=== PATIENT | female | born 1950 | race Caucasian/White ===

== ENCOUNTER 2017-04-11 16:41 | Emergency (ER) | payer MEDICARE ==
[2017-04-11] MEDS ORDERED: Acetaminophen/HYDROcodone 325-5 MG Tab PO ONE (18:50)
[2017-04-11] MEDS ORDERED: Ondansetron 4 MG Tab.DIS PO ONE (18:50)
--- NOTE | 2017-04-11 19:15 | EDM.PDOC ---
ED HPI GENERAL MEDICAL PROBLEM - General Stated Complaint: FALL/RT TAILBONE/PELVIC PAIN Time Seen by Provider: 04/11/17 18:42 Source of Information: Reports: Patient History Limitations: Reports: No Limitations - History of Present Illness INITIAL COMMENTS - FREE TEXT/NARRATIVE: HISTORY AND PHYSICAL: History of present illness: Patient is a 66-year-old female who presents to the emergency room today with complaints of tailbone pain, C-spine pain, nausea. She states that she was standing up out of her wheelchair and became lightheaded as she has orthostatic hypotension and fell landing on her "tailbone". Since that time she has had increased pain. Patient denies hitting her head or any loss of consciousness. Denies any chest pain, shortness of breath, abdominal pain, vomiting or diarrhea. When asked if she has any numbness or tingling to her lower extremities she states that this is difficult to assess if she does have neuropathy. Does not state any different sensation to her lower extremities bilaterally. Patient reports that she normally takes [place] at home for pain and discomfort but has not taken any in the light of this injury. Patient has a past medical history of orthostatic hypotension, kyphoplasty, cervical fusion, or concerns, neuropathy Review of systems: As per history of present illness and below otherwise all systems reviewed and negative. Past medical history: As per history of present illness and as reviewed below otherwise noncontributory. Surgical history: As per history of present illness and as reviewed below otherwise noncontributory. Social history: No reported history of drug or alcohol abuse. Family history: As per history of present illness and as reviewed below otherwise noncontributory. Physical exam: HEENT: Atraumatic, normocephalic, pupils reactive, negative for conjunctival pallor or scleral icterus, mucous membranes moist, throat clear, neck supple, nontender, trachea midline. Lungs: Clear to auscultation, breath sounds equal bilaterally, chest nontender. Heart: S1S2, regular, negative for clicks, rubs, or JVD. Abdomen: Soft, nondistended, nontender. Negative for masses or hepatosplenomegaly. Negative for costovertebral tenderness. Pelvis: Stable nontender. Genitourinary: Deferred. Rectal: Deferred. Extremities: Atraumatic, negative for cords or calf pain. Neurovascular unremarkable. Neuro: Awake, alert, oriented. Cranial nerves II through XII unremarkable. Cerebellum unremarkable. Motor and sensory unremarkable throughout. Exam nonfocal. Head CT shows no mass, hemorrhage or acute fractures. Cervical spine CT shows a fusion of C6-C7 with no acute findings. Pelvis x-ray shows degenerative changes with no acute findings. He sacrum and coccyx x-ray demonstrates severe lower lumbar spine degenerative disc disease. Explained these results to patient. We discussed the recommendation of using physical therapy in the future. Patient states that she did do physical therapy a few months ago and did find good relief but stopped due to moving. I will provide her with primary care phone number so she can make a follow-up appointment and further discuss these options with them. We'll give the patient a prescription for [place] 5/325 and she can take this every 4-6 hours as needed (#20 - NR). She has taken this medication in the past with moderate relief. Stopped taking this approximately a month ago when she moved to [place]. She voices understanding for plan of care and denies any further questions at this time. Diagnostics: CT head and C-spine, x-ray of the sacrum/coccyx and pelvis Therapeutics: Karlene Stinson Impression: Contusion Plan: 1. Please take the medications as prescribed. 2. I would like you to follow-up with her primary caregiver, they would be able to help you arrange physical therapy if your pain does not improve. 3. Return to the ED as needed and as discussed. Definitive disposition and diagnosis as appropriate pending reevaluation and review of above. Onset Date: 04/09/17 Duration: Day(s): Location: Reports: Neck, Back, Other (Tailbone) - Related Data Allergies Allergy/AdvReac Type Severity Reaction Status Date / Time acetaminophen [From Ultracet] Allergy Other Verified 04/11/17 18:49 sulfamethoxazole Allergy Other Verified 04/11/17 18:49 [From Bactrim] tramadol [From Ultracet] Allergy Other Verified 04/11/17 18:49 trimethoprim [From Bactrim] Allergy Other Verified 04/11/17 18:49 ED ROS GENERAL - Review of Systems Review Of Systems: See Below ED EXAM, GENERAL - Physical Exam Exam: See Below Course - Orders/Labs/Meds Orders: Active Orders 24 hr Category Date Time Status Cervical Spine wo Cont [CT] Stat Exams 04/11/17 18:50 Taken Head wo Cont [CT] Stat Exams 04/11/17 18:50 Taken Pelvis 1V or 2V [CR] Stat Exams 04/11/17 18:50 Taken Sacrum Coccyx Min 2V [CR] Stat Exams 04/11/17 18:50 Taken Meds: Medications Discontinued Medications Generic Name Dose Route Start Last Admin Trade Name Precious PRN Reason Stop Dose Admin Hydrocodone Bitart/Acetaminophen 1 tab 04/11/17 18:50 04/11/17 19:34 [place] 325-5 Mg PO 04/11/17 18:51 1 tab ONETIME ONE Administration Ondansetron HCl 4 mg 04/11/17 18:50 04/11/17 19:35 Zofran Odt PO 04/11/17 18:51 4 mg ONETIME ONE Administration Departure - Departure Time of Disposition: 20:16 Disposition: Home, Self-Care 01 Condition: Good Clinical Impression: Contusion Qualifiers: Encounter type: initial encounter Contusion area: lower back Qualified Code(s) : S30.0XXA - Contusion of lower back and pelvis, initial encounter - Discharge Information Referrals: Colin Medina MD [Primary Care Provider] - Additional Instructions: My general discharge The following information is given to patients seen in the emergency department who are being discharged to home. This information is to outline your options for follow-up care. We provide all patients seen in our emergency department with a follow-up referral. The need for follow-up, as well as the timing and circumstances, are variable depending upon the specifics of your emergency department visit. If you don't have a primary care physician on staff, we will provide you with a referral. We always advise you to contact your personal physician following an emergency department visit to inform them of the circumstance of the visit and for follow-up with them and/or the need for any referrals to a consulting specialist. The emergency department will also refer you to a specialist when appropriate. This referral assures that you have the opportunity for follow-up care with a specialist. All of these measure are taken in an effort to provide you with optimal care, which includes your follow-up. Under all circumstances we always encourage you to contact your private physician who remains a resource for coordinating your care. When calling for follow-up care, please make the office aware that this follow-up is from your recent emergency room visit. If for any reason you are refused follow-up, please contact the [facility] Emergency Department at and asked to speak to the emergency department charge nurse. [facility] Primary Care [address] [place] [id number] 1. Please take the medications as prescribed. 2. I would like you to follow-up with her primary caregiver, they would be able to help you arrange physical therapy if your pain does not improve. 3. Return to the ED as needed and as discussed. - My Orders Last 24 Hours: My Active Orders 04/11/17 18:50 Cervical Spine wo Cont [CT] Stat Head wo Cont [CT] Stat Pelvis 1V or 2V [CR] Stat Sacrum Coccyx Min 2V [CR] Stat - Assessment/Plan Last 24 Hours: My Active Orders 04/11/17 18:50 Cervical Spine wo Cont [CT] Stat Head wo Cont [CT] Stat Pelvis 1V or 2V [CR] Stat Sacrum Coccyx Min 2V [CR] Stat
--- NOTE | 2017-04-12 10:31 | CT ---
EXAM DATE: 04/11/17 PATIENT'S AGE: 66 Patient: BETHANIE VILLALOBOS Facility: [place], [place] : 1950 Study: CT Head [id number]/16/2017 7:17:47 PM Ordering Physician: LUIS Final Report: INDICATION: Status post fall. TECHNIQUE: CT head without i.v. contrast. COMPARISON: None FINDINGS: CSF spaces: Within normal limits for age. Brain parenchyma: The brain parenchyma is normal in appearance with preservation of the kohli-white differentiation. No sign of mass, hemorrhage, or midline shift seen. Skull base and calvarium: The visualized paranasal sinuses are well aerated. The mastoid air cells are clear. The visualized orbits are grossly unremarkable. No skull fractures are seen. Extensive calcified plaque involving the distal vertebral arteries. IMPRESSION: 1. No evidence of acute infarction, intracranial hemorrhage, or mass effect seen. Dictated by Franky Worley MD @ 04/11/2017 7:27:49 PM Dictated by: Franky Worley MD @ 04/11/2017 19:27:58 (Electronic Signature) Report Signed by Proxy. [facility]
--- NOTE | 2017-04-12 10:32 | CT ---
EXAM DATE: 04/11/17 PATIENT'S AGE: 66 Patient: BETHANIE VILLALOBOS Facility: [place], [place] : 1950 Study: CT Spine Cervical [id number]/16/2017 7:18:00 PM Ordering Physician: LUIS Final Report: INDICATION: Neck injury TECHNIQUE: CT cervical spine without i.v. contrast. Coronal and sagittal reformats were obtained. COMPARISON: None FINDINGS: Vertebral alignment: Alignment is normal. Vertebrae: No acute fractures or aggressive osseous lesions are identified. Anterior fusion of C6-C7. Discs and facet joints: Disc spaces are within normal limits. The facet joints are unremarkable in appearance. Extraspinal findings: The prevertebral soft tissues are unremarkable in appearance. The visualized lung apices and mediastinum are unremarkable. Coarse calcifications of the carotid bulbs bilaterally. IMPRESSION: 1. Anterior fusion of C6-C7. No acute cervical spine fracture or abnormal subluxation injury. Dictated by Franky Worley MD @ 04/11/2017 7:33:34 PM Dictated by: Franky Worley MD @ 04/11/2017 19:33:47 (Electronic Signature) Report Signed by Proxy. [facility]
--- NOTE | 2017-04-12 10:33 | CR ---
EXAM DATE: 04/11/17 PATIENT'S AGE: 66 Patient: BETHANIE VILLALOBOS Facility: [place], [place] Site . Site : 1950 Study: XRay Spine sac/krishna [id number]/16/2017 7:32:50 PM Ordering Physician: Doctor Cruz Final Report: INDICATION: Status post fall. TECHNIQUE: Sacrum radiograph 3 view COMPARISON: None FINDINGS: Lower lumbar spine degenerative disk disease, severe at the presumed L5-S1 level. No acute sacral fracture. Identified. No cortical irregularity on the lateral view. IMPRESSION: 1. No acute sacral fracture. 2. Severe lower lumbar spine degenerative disc disease. Dictated by Franky Worley MD @ 04/11/2017 7:49:56 PM Dictated by: Franky Worley MD @ 04/11/2017 19:50:01 (Electronic Signature) Report Signed by Proxy. [facility]
--- NOTE | 2017-04-12 10:33 | CR ---
EXAM DATE: 04/11/17 PATIENT'S AGE: 66 Patient: BETHANIE VILLALOBOS Facility: [place], [place] Site . Site : 1950 Study: XRay Pelvis [id number]/16/2017 7:32:30 PM Ordering Physician: Doctor Cruz Final Report: INDICATION: Status post fall. TECHNIQUE: Pelvis radiograph 1 view COMPARISON: None FINDINGS: Bones: Alignment is normal. No acute fractures or aggressive osseous lesions seen. Joint spaces: Moderate degree of bilateral hip joint space narrowing. Soft tissues: The visualized bowel gas pattern of the pelvis is unremarkable in appearance. The soft tissues of the pelvic girdle are unremarkable. No radiopaque foreign bodies are noted. Bilateral vascular calcifications in the groin regions. IMPRESSION: 1. Lower lumbar spine and bilateral hip degenerative changes. No acute fracture. Dictated by Franky Worley MD @ 04/11/2017 7:41:35 PM Dictated by: Franky Worley MD @ 04/11/2017 19:41:40 (Electronic Signature) Report Signed by Proxy. EMILY
== END 2017-04-11 20:27 | disposition home or self-care (01) ==
LOC: MW.ED 16:41
DX: S30.0XXA Contusion of lower back and pelvis, initial encounter (principal); Z88.1 Allergy status to other antibiotic agents; Z88.5 Allergy status to narcotic agent; Z88.2 Allergy status to sulfonamides; Z88.6 Allergy status to analgesic agent; W05.0XXA Fall from non-moving wheelchair, initial encounter
CPT/HCPCS: 70450; 72125; 72170; 72220; 99284; A9270; 99283

== ENCOUNTER 2017-06-04 18:08 | Emergency (ER) | payer MEDICARE ==
--- NOTE | 2017-06-04 18:52 | EDM.PDOC ---
ED HPI GENERAL MEDICAL PROBLEM - General Chief Complaint: Lower Extremity Injury/Pain Stated Complaint: LEFT FOOT PAIN Time Seen by Provider: 06/04/17 18:09 Source of Information: Reports: Patient, EMS History Limitations: Reports: No Limitations - History of Present Illness INITIAL COMMENTS - FREE TEXT/NARRATIVE: HISTORY AND PHYSICAL: History of present illness: [Patient comes to the emergency room by [facility] with complaints of left foot and ankle pain. Patient reports that she drove over her left foot with her motorized wheelchair, which she uses due to her history of Parkinson's. She complained of instant pain and called EMS for transport to the ER for evaluation. He denies numbness and tingling that is new or different. She admits to decreased sensation and decreased range of motion due to her Parkinson 's. Patient complains of most of her pain to the distal aspect of her left anterior lower leg.] Review of systems: As per history of present illness and below otherwise all systems reviewed and negative. Past medical history: As per history of present illness and as reviewed below otherwise noncontributory. Surgical history: As per history of present illness and as reviewed below otherwise noncontributory. Social history: No reported history of drug or alcohol abuse. Family history: As per history of present illness and as reviewed below otherwise noncontributory. Physical exam: Gen.: Well-developed well-nourished female in no acute distress. HEENT: Atraumatic, normocephalic. Extremities: No acute findings upon examination of her left foot and ankle. She is mildly tender with palpation throughout her entire foot and ankle. Diminished range of motion which is not unusual for her. No cords or calf pain. Neurovascular unremarkable. Neuro: Awake, alert, oriented. Motor and sensory unremarkable throughout. Exam nonfocal. Diagnostics: [Left foot and ankle x-rays] Impression: [Left lower leg pain] Plan: [Discussed with patient that her x-ray of her ankle is completely normal. Nondisplaced fracture involving the lateral base of the distal first phalanx versus trabecular variation. Encouraged her to follow-up with her PCP if she continues to experience any pain. Return to ER as needed. Patients in agreement with today's plan. All questions are answered and concerns are addressed.] Definitive disposition and diagnosis as appropriate pending reevaluation and review of above. left foot Pain Score (Numeric/FACES): 6 - Related Data Allergies Allergy/AdvReac Type Severity Reaction Status Date / Time acetaminophen [From Ultracet] Allergy Other Verified 06/04/17 18:11 sulfamethoxazole Allergy Other Verified 06/04/17 18:11 [From Bactrim] tramadol [From Ultracet] Allergy Other Verified 06/04/17 18:11 trimethoprim [From Bactrim] Allergy Other Verified 06/04/17 18:11 Home Meds: Home Meds Amitriptyline HCl 150 mg PO BEDTIME 06/04/17 [History] Carbidopa/Levodopa [Rytary ER 61.25 mg-245 mg Cap] 1 tab PO DAILY 06/04/17 [ History] Cholecalciferol (Vitamin D3) [Vitamin D3] 2,000 unit PO DAILY 06/04/17 [History] Magnesium Oxide [Magnesium] 400 mg PO DAILY 06/04/17 [History] Sucralfate 1 gm PO DAILY 06/04/17 [History] Past Medical History 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: High Cholesterol, Hypertension COMMUNICATION SPEC History: Reports: Musculoskeletal History: Reports: Gout Neurological History: Reports: Parkinson's - Infectious Disease History Infectious Disease History: Reports: Mumps - Past Surgical History HEENT Surgical History: Reports: Eye Surgery, Other (See Below) GI Surgical History: Reports: Cholecystectomy Musculoskeletal Surgical History: Reports: Other (See Below) Other Musculoskeletal Surgeries/Procedures:: cervical neck fusion, Kyphoplasty Social & Family History - Family History Cardiac: Reports: [place] Oncologic: Reports: Lymphoma, Ovarian - Tobacco Use Smoking Status *Q: Never Smoker Second Hand Smoke Exposure: No - Caffeine Use Caffeine Use: Reports: None - Recreational Drug Use Recreational Drug Use: No Review of Systems - Review of Systems Review Of Systems: ROS reveals no pertinent complaints other than HPI. ED EXAM, GENERAL - Physical Exam Exam: See Below Course - Vital Signs Last Recorded V/S: Last Vital Signs Temp 98.0 F 06/04/17 18:10 Pulse 102 H 06/04/17 18:10 Resp 18 06/04/17 18:10 BP 164/108 H 06/04/17 18:10 Pulse Ox 95 06/04/17 18:10 - Orders/Labs/Meds Orders: Active Orders 24 hr Category Date Time Status Ankle Min 3V Lt [CR] Stat Exams 06/04/17 18:09 Taken Foot 2V Lt [CR] Stat Exams 06/04/17 18:09 Taken Departure - Departure Time of Disposition: 20:10 Disposition: Home, Self-Care 01 Condition: Good Clinical Impression: Left foot pain - Discharge Information Referrals: PCP,Unknown [Primary Care Provider] - Forms: ED Department Discharge Additional Instructions: The following information is given to patients seen in the emergency department who are being discharged to home. This information is to outline your options for follow-up care. We provide all patients seen in our emergency department with a follow-up referral. The need for follow-up, as well as the timing and circumstances, are variable depending upon the specifics of your emergency department visit. If you don't have a primary care physician on staff, we will provide you with a referral. We always advise you to contact your personal physician following an emergency department visit to inform them of the circumstance of the visit and for follow-up with them and/or the need for any referrals to a consulting specialist. The emergency department will also refer you to a specialist when appropriate. This referral assures that you have the opportunity for follow-up care with a specialist. All of these measure are taken in an effort to provide you with optimal care, which includes your follow-up. Under all circumstances we always encourage you to contact your private physician who remains a resource for coordinating your care. When calling for follow-up care, please make the office aware that this follow-up is from your recent emergency room visit. If for any reason you are refused follow-up, please contact the [facility] emergency department at and asked to speak to the emergency department charge nurse. [facility] [address] [place] [id number] Follow-up with your local primary care provider or the clinic listed above in the next 4-5 days. Return to the emergency room as needed as discussed. - My Orders Last 24 Hours: My Active Orders 06/04/17 18:09 Ankle Min 3V Lt [CR] Stat Foot 2V Lt [CR] Stat - Assessment/Plan Last 24 Hours: My Active Orders 06/04/17 18:09 Ankle Min 3V Lt [CR] Stat Foot 2V Lt [CR] Stat
--- NOTE | 2017-06-06 16:07 | CR ---
MEXAM DATE: 06/04/17 PATIENT'S AGE: 66 Patient: BETHANIE VILLALOBOS Facility: [place], [place] Site . Site : 1950 Study: XRay Extremity Left foot [id number]/9/2017 6:53:34 PM Ordering Physician: Doctor Cruz Final Report: Indication: Pain. Technique: Left foot two views. Comparison: Left ankle same day. Findings: Obliquely oriented lucency involving the lateral base of the distal 1st phalanx , of uncertain significance. Otherwise, no evidence of acute fracture or dislocation. Degenerative changes of the midfoot and calcaneal enthesopathy. Vascular calcifications. Soft tissues as imaged are otherwise unremarkable. Impression: Nondisplaced fracture versus trabecular variation involving the lateral base of the distal 1st phalanx. Correlation for point tenderness recommended. .Otherwise, no acute osseous abnormality. Dictated by Sarkis Javier MD @ 06/04/2017 7:22:15 PM Dictated by: Sarkis Javier MD @ 06/04/2017 19:22:20 (Electronic Signature) Report Signed by Proxy. [facility]
--- NOTE | 2017-06-06 16:10 | CR ---
EXAM DATE: 06/04/17 PATIENT'S AGE: 66 Patient: BETHANIE VILLALOBOS Facility: [place], [place] Site . Site : 1950 Study: XRay Extremity Left ankle [id number]/[id number]/2017 6:53:57 PM Ordering Physician: Doctor Cruz Final Report: Indication: Pain. Technique: Left ankle three views. Comparison: Left foot same day. Findings: No evidence of acute fracture or dislocation. Minimal degenerative changes of the tibiotalar joint. Degenerative changes of the midfoot and calcaneal enthesopathy. Vascular calcifications. Soft tissues elsewhere as imaged are unremarkable. Impression: No acute osseous abnormality. Dictated by Sarkis Javier MD @ 06/04/2017 7:20:31 PM Dictated by: Sarkis Javier MD @ 06/04/2017 19:20:38 (Electronic Signature) Report Signed by Proxy. [facility]
== END 2017-06-04 20:20 | disposition home or self-care (01) ==
LOC: MW.ED 18:08
DX: M79.672 Pain in left foot (principal); M79.662 Pain in left lower leg; I10 Essential (primary) hypertension; Z88.6 Allergy status to analgesic agent; Z88.2 Allergy status to sulfonamides; Z88.5 Allergy status to narcotic agent; Z88.1 Allergy status to other antibiotic agents; Z79.899 Other long term (current) drug therapy
CPT/HCPCS: 73610-26-LT; 73610-LT; 73620-26-LT; 73620-LT; 99283

== ENCOUNTER 2017-07-09 01:26 | Emergency (ER) | payer MEDICARE ==
[2017-07-09] MEDS ORDERED: Ketorolac 60 MG/2 ML SDV IM ONE (02:13)
--- NOTE | 2017-07-09 02:18 | EDM.PDOC ---
ED HPI GENERAL MEDICAL PROBLEM - General Chief Complaint: Back Pain or Injury Stated Complaint: BACK PAIN Time Seen by Provider: 07/09/17 02:02 - History of Present Illness INITIAL COMMENTS - FREE TEXT/NARRATIVE: HISTORY AND PHYSICAL: History of present illness: The patient is a 66-year-old female who is here with her son who lives with her and presents with complaints of bilateral hip joint pain and saying that her hips or burning and when she moves them she feels "like they're coming out of the socket". Patient has not had any recent trauma and says that she has had left hip pain for several weeks but has not talked her provider about it but the right hip pain is new. According to the family and the patient she uses a wheelchair almost all the time and her walker is broken so she has not been up moving very much but more sedentary than usual. The patient is currently in the process of getting a workup for abdominal pain and nausea with Dr. Medina and has an upper GI scheduled this week. Patient says she is not here for the abdominal issues or the nausea is concerned about her hip pain. She also says that her back hurts off to the side bilaterally but is not flank pain and she has no fever chills cough runny nose or shortness of breath. Patient has no neurosensory changes in her legs and is at her baseline overall with her movement per her son. Patient is only taken aspirin for pain Review of systems: As per history of present illness and below otherwise all systems reviewed and negative. Past medical history: As per history of present illness and as reviewed below otherwise noncontributory. Surgical history: As per history of present illness and as reviewed below otherwise noncontributory. Social history: No reported history of drug or alcohol abuse. Family history: As per history of present illness and as reviewed below otherwise noncontributory. Physical exam: Gen.: Well-developed well-nourished female looks older than her stated age. Vital signs were noted by me HEENT: Atraumatic, normocephalic, pupils reactive, negative for conjunctival pallor or scleral icterus, mucous membranes moist, throat clear, neck supple, nontender, trachea midline. Lungs: Clear to auscultation, breath sounds equal bilaterally, chest nontender. Heart: S1S2, regular, negative for clicks, rubs, or JVD. Abdomen: Soft, nondistended, nontender. Negative for masses or hepatosplenomegaly. Negative for costovertebral tenderness. Pelvis: Stable nontender. There is some tenderness with palpation of the hips laterally but there is no defects deformities or swelling. Genitourinary: Deferred. Rectal: There is normal tone no acute masses normal push and squeeze Extremities: Atraumatic, negative for cords or calf pain. Neurovascular unremarkable. On range of motion of bilateral hips patient is able to flex at the hip without discomfort but with external and internal rotation bilaterally there is discomfort and resistance. Neuro: Awake, alert, oriented. Motor and sensory unremarkable throughout. Exam nonfocal. Back: There are no midline step-offs tenderness defects of the lumbar spine nor the thoracic spine and the patient indicates the area of her discomfort at the SI joint bilaterally. There is some tenderness with palpation but no defects or deformities in this region. Patient is able to roll on her side with minimal assistance. 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 I also talked with her about her kyphoplasty of T12 again with the patient is aware of as well as her compression fractures of T11 and T10 which look chronic . There also aware of the disc space narrowing and degenerative changes of the lower lumbar spine which when I looked in the computer the patient did have some x-rays back in the fall of 2017 which indicated lumbar spine degenerative changes. Patient again states this is not an area for pain and it is more at the SI joint. The patient has mentioned that she would like to stay in the hospital because of the discomfort but I've talked with her and the son that this is not indicated at this time and that she can be started on anti-inflammatories and follow-up with Dr. Medina as she has other testing scheduled this week. I did advise them that she needs to start moving around more and not just sitting in her wheelchair or sitting in the chair at home. Advised that they do need to contact Dr. Medina on Tuesday or Tuesday to have a dialogue with him about this pain that she is having tonight. Impression: Bilateral hips/SI joint pain Definitive disposition and diagnosis as appropriate pending reevaluation and review of above low back Pain Score (Numeric/FACES): 9 - Related Data Allergies Allergy/AdvReac Type Severity Reaction Status Date / Time acetaminophen [From Ultracet] Allergy Other Verified 07/09/17 01:45 sulfamethoxazole Allergy Other Verified 07/09/17 01:45 [From Bactrim] tramadol [From Ultracet] Allergy Other Verified 07/09/17 01:45 trimethoprim [From Bactrim] Allergy Other Verified 07/09/17 01:45 Home Meds: Home Meds Amitriptyline HCl 150 mg PO BEDTIME 06/04/17 [History] Carbidopa/Levodopa [Rytary ER 61.25 mg-245 mg Cap] 1 tab PO DAILY 06/04/17 [ History] Cholecalciferol (Vitamin D3) [Vitamin D3] 2,000 unit PO DAILY 06/04/17 [History] Magnesium Oxide [Magnesium] 400 mg PO DAILY 06/04/17 [History] Sucralfate 1 gm PO DAILY 06/04/17 [History] Past Medical History - Past Health History Medical/Surgical History: Denies Medical/Surgical History HEENT History: Reports: Impaired Vision Other HEENT History: wears glasses 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: High Cholesterol, Hypertension 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: Musculoskeletal History: Reports: Gout Neurological History: Reports: Parkinson's Endocrine/Metabolic History: Reports: Hypothyroidism - Infectious Disease History Infectious Disease History: Reports: Mumps - Past Surgical History HEENT Surgical History: Reports: Eye Surgery, Other (See Below) GI Surgical History: Reports: Cholecystectomy Musculoskeletal Surgical History: Reports: Other (See Below) Other Musculoskeletal Surgeries/Procedures:: cervical neck fusion, Kyphoplasty Social & Family History - Family History Family Medical History: Noncontributory Cardiac: Reports: [place] Oncologic: Reports: Lymphoma, Ovarian - Tobacco Use Smoking Status *Q: Never Smoker Second Hand Smoke Exposure: No - Caffeine Use Caffeine Use: Reports: None - Recreational Drug Use Recreational Drug Use: No ED ROS GENERAL - Review of Systems Review Of Systems: ROS reveals no pertinent complaints other than HPI. ED EXAM, GENERAL - Physical Exam Exam: See Below (See dictation) Course - Vital Signs Last Recorded V/S: Last Vital Signs Temp 36.2 C 07/09/17 04:45 Pulse 84 07/09/17 04:45 Resp 19 07/09/17 04:45 BP 157/88 H 07/09/17 04:45 Pulse Ox 97 07/09/17 04:45 - Orders/Labs/Meds Orders: Active Orders 24 hr Category Date Time Status Hip Min 2V or 3V Rt [CR] Stat Exams 07/09/17 02:13 Taken Hip Min 2V or 3V w Pelvis Lt [CR] Stat Exams 07/09/17 02:13 Taken Lumbar Spine 2 or 3V [CR] Stat Exams 07/09/17 02:14 Taken Labs: Laboratory Tests 07/09/17 Range/Units 02:40 Urine Color YELLOW Urine Appearance SLT CLOUDY Urine pH 6.0 (5.0-8.0) Ur Specific [place] >= 1.030 (1.001-1.035) Urine Protein NEGATIVE (NEGATIVE) mg/dL Urine Glucose (UA) NEGATIVE (NEGATIVE) mg/dL Urine Ketones 15 H (NEGATIVE) mg/dL Urine Occult Blood NEGATIVE (NEGATIVE) Urine Nitrite NEGATIVE (NEGATIVE) Urine Bilirubin NEGATIVE (NEGATIVE) Urine Urobilinogen 0.2 (<2.0) EU/dL Ur Leukocyte Esterase NEGATIVE (NEGATIVE) Urine RBC 0-1 (0-2/HPF) Urine WBC 2-4 (0-5/HPF) Ur Epithelial Cells FEW (NONE-FEW) Urine Bacteria FEW (NEGATIVE) Urine Mucus FEW (NONE-MOD) Meds: Medications Discontinued Medications Generic Name Dose Route Start Last Admin Trade Name Tiq PRN Reason Stop Dose Admin Ketorolac Tromethamine 60 mg 07/09/17 02:13 07/09/17 02:22 Toradol IM 07/09/17 02:14 60 mg ONETIME ONE Administration Departure - Departure Time of Disposition: 04:50 Disposition: Home, Self-Care 01 Condition: Good Clinical Impression: Sacroiliac joint pain Hip pain Qualifiers: Laterality: bilateral Qualified Code(s): M25.551 - Pain in right hip; M25.552 - Pain in left hip; M25.552 - Pain in left hip Degenerative joint disease (DJD) of lumbar spine Qualifiers: Spinal osteoarthritis complication: unspecified spinal osteoarthritis Qualified Code(s): M47.816 - Spondylosis without myelopathy or radiculopathy, lumbar region - Discharge Information Referrals: Colin Medina MD [Primary Care Provider] - Forms: ED Department Discharge Additional Instructions: The following information is given to patients seen in the emergency department who are being discharged to home. This information is to outline your options for follow-up care. We provide all patients seen in our emergency department with a follow-up referral. The need for follow-up, as well as the timing and circumstances, are variable depending upon the specifics of your emergency department visit. If you don't have a primary care physician on staff, we will provide you with a referral. We always advise you to contact your personal physician following an emergency department visit to inform them of the circumstance of the visit and for follow-up with them and/or the need for any referrals to a consulting specialist. The emergency department will also refer you to a specialist when appropriate. This referral assures that you have the opportunity for followup care with a specialist. All of these measure are taken in an effort to provide you with optimal care, which includes your followup. Under all circumstances we always encourage you to contact your private physician who remains a resource for coordinating your care. When calling for followup care, please make the office aware that this follow-up is from your recent emergency room visit. If for any reason you are refused follow-up, please contact the [facility] emergency department at and ask to speak to the emergency department charge nurse. [address] [place] [address] Please contact her provider Dr. Medina early next week to discuss with him today's visit to the ER and use diclofenac as you have been prescribed for the next few days. Also try to move more and try to use your lower muscles and joints more to help promote more mobility and flexibility. Return to ER as needed and as discussed. - My Orders Last 24 Hours: My Active Orders 07/09/17 02:13 Hip Min 2V or 3V Rt [CR] Stat Hip Min 2V or 3V w Pelvis Lt [CR] Stat 07/09/17 02:14 Lumbar Spine 2 or 3V [CR] Stat - Assessment/Plan Last 24 Hours: My Active Orders 07/09/17 02:13 Hip Min 2V or 3V Rt [CR] Stat Hip Min 2V or 3V w Pelvis Lt [CR] Stat 07/09/17 02:14 Lumbar Spine 2 or 3V [CR] Stat
--- NOTE | 2017-07-11 15:36 | CR ---
EXAM DATE: 07/09/17 PATIENT'S AGE: 66 Patient: BETHANIE VILLALOBOS Facility: [place], [place] Site . Site : 1950 Study: XRay Spine Lumbar [id number]/13/2018 4:15:21 AM Ordering Physician: Heena Guevara Final Report: INDICATION: Low back Pain without injury TECHNIQUE: Lumbar spine radiograph 3 views COMPARISON: None FINDINGS: Bones: Alignment is normal. There is a transitional vertebral body present which will be labeled as L5 on this examination. Severe compression deformity of T12 is present with methylmethacrylate. Severe compression deformity of T10 and moderate compression deformity of T11 seen. Discs: Severe degenerative disc narrowing with vacuum phenomena is present at L4 -5. Moderate bilateral facet osteoarthritis is present at L4-5 and L5-S1. Soft tissues: Unremarkable. No radiopaque foreign bodies are seen. IMPRESSION: 1. There is a transitional vertebral body present which will be labeled as L5 on this examination. Severe compression deformity of T12 is present with methylmethacrylate. Severe compression deformity of T10 and moderate compression deformity of T11 seen, likely chronic but correlation with physical exam may be helpful to exclude an acute injury component. Dictated by Reji Camarillo MD @ 07/09/2017 4:22:15 AM Dictated by: Reji Camarillo MD @ 07/09/2017 04:22:20 (Electronic Signature) Report Signed by Proxy. EMILY
--- NOTE | 2017-07-11 15:37 | CR ---
EXAM DATE: 07/09/17 PATIENT'S AGE: 66 Patient: BETHANIE VILLALOBOS Facility: [place], [place] Site . Site : 1950 Study: XRay Pelvis [id number]/13/2018 4:16:07 AM Ordering Physician: Heena Guevara Final Report: INDICATION: Hip Pain without injury TECHNIQUE: Pelvis radiograph, Hip radiograph 3 views left COMPARISON: None FINDINGS: Bones: No acute fractures or aggressive bone lesions are identified. Joints: The hip joint is unremarkable. Right SI joint arthritis is noted. The pubic symphysis is normal in appearance. Soft tissues: Unremarkable. The visualized bowel gas pattern of the pelvis is unremarkable in appearance. No radiopaque foreign bodies are seen. IMPRESSION: 1. No acute osseous injuries or abnormalities are noted. Dictated by: Reji Camarillo MD @ 07/09/2017 04:23:28 (Electronic Signature) Report Signed by Proxy. EMILY
--- NOTE | 2017-07-11 15:38 | CR ---
EXAM DATE: 07/09/17 PATIENT'S AGE: 66 Patient: BETHANIE VILLALOBOS Facility: [place], [place] Site . Site : 1950 Study: XRay Hip Right [id number]/13/2018 4:16:57 AM Ordering Physician: Heena Guevara Final Report: INDICATION: Hip Pain without injury TECHNIQUE: Hip radiograph 2 views right COMPARISON: None FINDINGS: Bones: No acute fractures or aggressive bone lesions are identified. Joints: The hip joint is unremarkable. The visualized sacroiliac joints are unremarkable in appearance. The pubic symphysis is normal in appearance. Soft tissues: Unremarkable. No radiopaque foreign bodies are seen. IMPRESSION: 1. No acute osseous injuries or abnormalities are noted. Dictated by: Reji Camarillo MD @ 07/09/2017 04:23:53 (Electronic Signature) Report Signed by Proxy. EMILY
== END 2017-07-09 05:06 | disposition home or self-care (01) ==
LOC: MW.ED 01:26
DX: M47.816 Spondylosis without myelopathy or radiculopathy, lumbar region (principal); M25.511 Pain in right shoulder; M25.552 Pain in left hip; M53.3 Sacrococcygeal disorders, not elsewhere classified; I10 Essential (primary) hypertension; E78.00 Pure hypercholesterolemia, unspecified; E03.9 Hypothyroidism, unspecified; Z79.899 Other long term (current) drug therapy; Z88.1 Allergy status to other antibiotic agents; Z88.2 Allergy status to sulfonamides; Z88.5 Allergy status to narcotic agent; Z88.6 Allergy status to analgesic agent
CPT/HCPCS: 72100; 73502; 81001; 96372; 99283; J1885; 99284

== ENCOUNTER 2017-07-19 15:48 | Emergency (ER) | payer MEDICARE ==
--- NOTE | 2017-07-19 17:17 | EDM.PDOC ---
ED HPI GENERAL MEDICAL PROBLEM - General Chief Complaint: General Stated Complaint: TREMORS Time Seen by Provider: 07/19/17 17:17 Source of Information: Reports: Patient - History of Present Illness INITIAL COMMENTS - FREE TEXT/NARRATIVE: HISTORY AND PHYSICAL: History of present illness: [Patient with history of Parkinson's disease presents with tremor and pill rolling right upper extremity, she is not been able to afford her brand-name medication Substituted carbidopa levodopa 25 per 2 5090 tabs 1 by mouth 3 times a day Follow-up with primary care in one month supply provided No other symptoms such as fever nausea vomiting diarrhea constipation chest pain shortness breath headache dizziness palpitation about a urine symptoms ] Review of systems: As per history of present illness and below otherwise all systems reviewed and negative. Past medical history: As per history of present illness and as reviewed below otherwise noncontributory. Surgical history: As per history of present illness and as reviewed below otherwise noncontributory. Social history: No reported history of drug or alcohol abuse. Family history: As per history of present illness and as reviewed below otherwise noncontributory. Physical exam: HEENT: Atraumatic, normocephalic, pupils reactive, negative for conjunctival pallor or scleral icterus, mucous membranes moist, throat clear, neck supple, nontender, trachea midline. Lungs: Clear to auscultation, breath sounds equal bilaterally, chest nontender. Heart: S1S2, regular, negative for clicks, rubs, or JVD. Abdomen: Soft, nondistended, nontender. Negative for masses or hepatosplenomegaly. Negative for costovertebral tenderness. Pelvis: Stable nontender. Genitourinary: Deferred. Rectal: Deferred. Extremities: Atraumatic, negative for cords or calf pain. Neurovascular unremarkable. Neuro: Awake, alert, oriented. Cranial nerves II through XII unremarkable. Cerebellum unremarkable. Motor and sensory unremarkable throughout. Exam nonfocal. Diagnostics: [] Therapeutics: []Carbidopa levodopa 25 per 251 by mouth 3 times a day #90 no refill Follow-up with Dr. Medina Impression: [Parkinson's disease Medication noncompliance] Definitive disposition and diagnosis as appropriate pending reevaluation and review of above. Generalized Pain Score (Numeric/FACES): 5 - Related Data Allergies Allergy/AdvReac Type Severity Reaction Status Date / Time acetaminophen [From Ultracet] Allergy Other Verified 07/09/17 01:45 sulfamethoxazole Allergy Other Verified 07/09/17 01:45 [From Bactrim] tramadol [From Ultracet] Allergy Other Verified 07/09/17 01:45 trimethoprim [From Bactrim] Allergy Other Verified 07/09/17 01:45 Home Meds: Home Meds Amitriptyline HCl 150 mg PO BEDTIME 06/04/17 [History] Carbidopa/Levodopa [Rytary ER 61.25 mg-245 mg Cap] 1 tab PO Q4HR 06/04/17 [ History] Cholecalciferol (Vitamin D3) [Vitamin D3] 2,000 unit PO DAILY 06/04/17 [History] Magnesium Oxide [Magnesium] 400 mg PO DAILY 06/04/17 [History] Sucralfate 1 gm PO DAILY 06/04/17 [History] Allopurinol [Zyloprim] 100 mg PO DAILY 07/19/17 [History] Donepezil [Aricept] 10 mg PO BEDTIME 07/19/17 [History] Gabapentin [Neurontin] 100 mg PO TID 07/19/17 [History] Pramipexole Di-HCl [Mirapex] 0.125 mg PO TID 07/19/17 [History] Past Medical History - Past Health History Medical/Surgical History: Denies Medical/Surgical History HEENT History: Reports: Impaired Vision Other HEENT History: wears glasses 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: High Cholesterol, Hypertension 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: Musculoskeletal History: Reports: Gout Neurological History: Reports: Parkinson's Endocrine/Metabolic History: Reports: Hypothyroidism - Infectious Disease History Infectious Disease History: Reports: Chicken Pox, Measles, Mumps - Past Surgical History HEENT Surgical History: Reports: Eye Surgery, Other (See Below) GI Surgical History: Reports: Cholecystectomy Musculoskeletal Surgical History: Reports: Other (See Below) Other Musculoskeletal Surgeries/Procedures:: cervical neck fusion, Kyphoplasty Social & Family History - Family History Family Medical History: Noncontributory Cardiac: Reports: [place] Oncologic: Reports: Lymphoma, Ovarian - Tobacco Use Smoking Status *Q: Never Smoker Second Hand Smoke Exposure: No - Caffeine Use Caffeine Use: Reports: Soda - Recreational Drug Use Recreational Drug Use: No ED ROS GENERAL - Review of Systems Review Of Systems: ROS reveals no pertinent complaints other than HPI. ED EXAM, GENERAL - Physical Exam Exam: See Below Course - Vital Signs Last Recorded V/S: Last Vital Signs Temp 96.8 F 07/19/17 16:41 Pulse 107 H 07/19/17 16:41 Resp 18 07/19/17 16:41 BP 140/73 07/19/17 16:41 Pulse Ox 94 L 07/19/17 16:41 Departure - Departure Time of Disposition: 17:27 Disposition: Home, Self-Care 01 Condition: Good Clinical Impression: Parkinsons disease - Discharge Information Referrals: Colin Medina MD [Primary Care Provider] - Forms: ED Department Discharge Additional Instructions: Medication as prescribed Continue other current medications Follow-up with primary care in 2 weeks sooner as needed The following information is given to patients seen in the emergency department who are being discharged to home. This information is to outline your options for follow-up care. We provide all patients seen in our emergency department with a follow-up referral. The need for follow-up, as well as the timing and circumstances, are variable depending upon the specifics of your emergency department visit. If you don't have a primary care physician on staff, we will provide you with a referral. We always advise you to contact your personal physician following an emergency department visit to inform them of the circumstance of the visit and for follow-up with them and/or the need for any referrals to a consulting specialist. The emergency department will also refer you to a specialist when appropriate. This referral assures that you have the opportunity for follow-up care with a specialist. All of these measure are taken in an effort to provide you with optimal care, which includes your follow-up. Under all circumstances we always encourage you to contact your private physician who remains a resource for coordinating your care. When calling for follow-up care, please make the office aware that this follow-up is from your recent emergency room visit. If for any reason you are refused follow-up, please contact the [facility] emergency department at and asked to speak to the emergency department charge nurse.
== END 2017-07-19 17:38 | disposition home or self-care (01) ==
LOC: MW.ED 15:48
DX: G20 Parkinson's disease (principal); E78.00 Pure hypercholesterolemia, unspecified; I10 Essential (primary) hypertension; E03.9 Hypothyroidism, unspecified; Z88.2 Allergy status to sulfonamides; Z88.6 Allergy status to analgesic agent; Z88.8 Allergy status to other drugs, medicaments and biological substances; Z79.899 Other long term (current) drug therapy
CPT/HCPCS: 99282; 99283

== ENCOUNTER 2017-07-21 00:25 | Inpatient (IN) | payer MEDICARE ==
[2017-07-21] MEDS ORDERED: Ondansetron 4 MG/2 ML SDV IVPUSH ONE (00:32)
[2017-07-21] MEDS ORDERED: Sodium Chloride 0.9% 1,000 ML IV ONE (00:32)
--- NOTE | 2017-07-21 00:33 | EDM.PDOC ---
ED HPI GENERAL MEDICAL PROBLEM - General Chief Complaint: Gastrointestinal Problem Stated Complaint: VOMITING Time Seen by Provider: 07/21/17 00:33 Source of Information: Reports: Patient - History of Present Illness INITIAL COMMENTS - FREE TEXT/NARRATIVE: HISTORY AND PHYSICAL: History of present illness: [Patient presents with multiple episodes of vomiting over the last 12 hours last episode just prior to arrival, I did see the patient 24 hours prior for Parkinson's tremor and started her on carbidopa levodopa patient is is out of her previous medication due to the expense associated with REM specific medications. That time she was not ill-appearing tonight she does appear under the weather No fever chills sweats no chest pain shortness breath headache dizziness or palpitation no bowel or urine symptoms are she does have epigastric pain 3 out of 10 post vomiting nonradiating ] Review of systems: As per history of present illness and below otherwise all systems reviewed and negative. Past medical history: As per history of present illness and as reviewed below otherwise noncontributory. Surgical history: As per history of present illness and as reviewed below otherwise noncontributory. Social history: No reported history of drug or alcohol abuse. Family history: As per history of present illness and as reviewed below otherwise noncontributory. Physical exam: HEENT: Atraumatic, normocephalic, pupils reactive, negative for conjunctival pallor or scleral icterus, mucous membranes moist, throat clear, neck supple, nontender, trachea midline. Lungs: Clear to auscultation, breath sounds equal bilaterally, chest nontender. Heart: S1S2, regular, negative for clicks, rubs, or JVD. Abdomen: Soft, nondistended, nontender. Negative for masses or hepatosplenomegaly. Negative for costovertebral tenderness. Pelvis: Stable nontender. Genitourinary: Deferred. Rectal: Deferred. Extremities: Atraumatic, negative for cords or calf pain. Neurovascular unremarkable. Neuro: Awake, alert, oriented. Cranial nerves II through XII unremarkable. Cerebellum unremarkable. Motor and sensory unremarkable throughout. Exam nonfocal. Diagnostics: [CBC CMP UA Influenza Abdomen flat and upright ] Therapeutics: [1 L normal saline bolus then to run at 1 25 mL per hour Zofran 8 mg IV ] Admitted FOR rehydration Dr. Lazo Impression: [Vomiting Gastroenteritis Mild dehydration secondary to above] Chronic history of baseline Definitive disposition and diagnosis as appropriate pending reevaluation and review of above. abdomen Pain Score (Numeric/FACES): 4 - Related Data Allergies Allergy/AdvReac Type Severity Reaction Status Date / Time acetaminophen [From Ultracet] Allergy Other Verified 07/21/17 00:39 sulfamethoxazole Allergy Other Verified 07/21/17 00:39 [From Bactrim] tramadol [From Ultracet] Allergy Other Verified 07/21/17 00:39 trimethoprim [From Bactrim] Allergy Other Verified 07/21/17 00:39 Home Meds: Home Meds Amitriptyline HCl 150 mg PO BEDTIME 06/04/17 [History] Carbidopa/Levodopa [Rytary ER 61.25 mg-245 mg Cap] 1 tab PO Q4HR 06/04/17 [ History] Cholecalciferol (Vitamin D3) [Vitamin D3] 3,000 unit PO DAILY 06/04/17 [History] Magnesium Oxide [Magnesium] 400 mg PO DAILY 06/04/17 [History] Sucralfate 1 gm PO DAILY 06/04/17 [History] Allopurinol [Zyloprim] 100 mg PO DAILY 07/19/17 [History] Donepezil [Aricept] 10 mg PO BEDTIME 07/19/17 [History] Gabapentin [Neurontin] 100 mg PO TID 07/19/17 [History] Pramipexole Di-HCl [Mirapex] 0.125 mg PO TID 07/19/17 [History] Past Medical History - Past Health History Medical/Surgical History: Denies Medical/Surgical History HEENT History: Reports: Impaired Vision Other HEENT History: wears glasses 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: High Cholesterol, Hypertension 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: Musculoskeletal History: Reports: Gout Neurological History: Reports: Parkinson's Endocrine/Metabolic History: Reports: Hypothyroidism - Infectious Disease History Infectious Disease History: Reports: Chicken Pox, Measles, Mumps - Past Surgical History HEENT Surgical History: Reports: Eye Surgery, Other (See Below) GI Surgical History: Reports: Cholecystectomy Musculoskeletal Surgical History: Reports: Other (See Below) Other Musculoskeletal Surgeries/Procedures:: cervical neck fusion, Kyphoplasty Social & Family History - Family History Family Medical History: Noncontributory Cardiac: Reports: [place] Oncologic: Reports: Lymphoma, Ovarian - Tobacco Use Smoking Status *Q: Never Smoker Second Hand Smoke Exposure: No - Caffeine Use Caffeine Use: Reports: Soda - Recreational Drug Use Recreational Drug Use: No ED ROS GENERAL - Review of Systems Review Of Systems: ROS reveals no pertinent complaints other than HPI. ED EXAM, GENERAL - Physical Exam Exam: See Below Course - Vital Signs Last Recorded V/S: Last Vital Signs Temp 98.4 F 07/21/17 00:25 Pulse 74 07/21/17 00:25 Resp 18 07/21/17 00:25 BP 152/77 H 07/21/17 00:25 Pulse Ox 94 L 07/21/17 00:25 - Orders/Labs/Meds Orders: Active Orders 24 hr Category Date Time Status Abdomen 2V AP Flat Upright [CR] Stat Exams 07/21/17 01:54 Taken CULTURE URINE [RM] Stat Lab 07/21/17 02:58 Uncollected Sodium Chloride 0.9% [Normal Saline] 1,000 ml Med 07/21/17 02:45 Active IV STAT Medication Orders Sodium Chloride (Normal Saline) 1,000 mls @ 125 mls/hr IV STAT [place] Labs: Laboratory Tests 07/21/17 07/21/17 07/21/17 Range/Units 00:55 00:55 00:55 WBC 11.74 H (4.0-11.0) K/uL RBC 4.75 (4.30-5.90) M/uL Hgb 13.7 (12.0-16.0) g/dL Hct 44.0 (36.0-46.0) % MCV 92.6 (80.0-98.0) fL MCH 28.8 (27.0-32.0) pg MCHC 31.1 (31.0-37.0) g/dL RDW Std Deviation 45.8 (28.0-62.0) fl RDW Coeff of Kelil 14 (11.0-15.0) % Plt Count 213 (150-400) K/uL MPV 12.10 H (7.40-12.00) fL Neut % (Auto) 79.7 (48.0-80.0) % Lymph % (Auto) 14.5 L (16.0-40.0) % [place] % (Auto) 4.3 (0.0-15.0) % Eos % (Auto) 1.4 (0.0-7.0) % Baso % (Auto) 0.1 (0.0-1.5) % Neut # (Auto) 9.4 H (1.4-5.7) K/uL Lymph # (Auto) 1.7 (0.6-2.4) K/uL [place] # (Auto) 0.5 (0.0-0.8) K/uL Eos # (Auto) 0.2 (0.0-0.7) K/uL Baso # (Auto) 0.0 (0.0-0.1) K/uL Sodium 141 (136-146) mmol/L Potassium 4.6 (3.5-5.1) mmol/L Chloride 104 (98-110) mmol/L Carbon Dioxide 29 (21-31) mmol/L BUN 20 (6.0-23.0) mg/dL Creatinine 0.7 (0.6-1.5) mg/dL Est Cr Clr Drug Dosing TNP Estimated GFR (MDRD) > 60.0 ml/min Glucose 96 (60-110) mg/dL Calcium 9.5 (8.8-10.8) mg/dL Total Bilirubin 1.0 (0.1-1.5) mg/dL AST 11 (5-40) IU/L ALT < 6 L (8-54) IU/L Alkaline Phosphatase 87 (40-150) Total Protein 7.4 (6.0-8.0) g/dL Albumin 4.0 (3.4-4.8) g/dL Globulin 3.4 (2.0-3.5) g/dL Albumin/Globulin Ratio 1.2 L (1.3-2.8) Lipase < 9 (7-80) U/L Urine Color Urine Appearance Urine pH (5.0-8.0) Ur Specific [place] (1.001-1.035) Urine Protein (NEGATIVE) mg/dL Urine Glucose (UA) (NEGATIVE) mg/dL Urine Ketones (NEGATIVE) mg/dL Urine Occult Blood (NEGATIVE) Urine Nitrite (NEGATIVE) Urine Bilirubin (NEGATIVE) Urine Urobilinogen (<2.0) EU/dL Ur Leukocyte Esterase (NEGATIVE) Urine RBC (0-2/HPF) Urine WBC (0-5/HPF) Ur Epithelial Cells (NONE-FEW) Urine Bacteria (NEGATIVE) Urine Yeast 07/21/17 Range/Units 02:30 WBC (4.0-11.0) K/uL RBC (4.30-5.90) M/uL Hgb (12.0-16.0) g/dL Hct (36.0-46.0) % MCV (80.0-98.0) fL MCH (27.0-32.0) pg MCHC (31.0-37.0) g/dL RDW Std Deviation (28.0-62.0) fl RDW Coeff of Kelli (11.0-15.0) % Plt Count (150-400) K/uL MPV (7.40-12.00) fL Neut % (Auto) (48.0-80.0) % Lymph % (Auto) (16.0-40.0) % [place] % (Auto) (0.0-15.0) % Eos % (Auto) (0.0-7.0) % Baso % (Auto) (0.0-1.5) % Neut # (Auto) (1.4-5.7) K/uL Lymph # (Auto) (0.6-2.4) K/uL [place] # (Auto) (0.0-0.8) K/uL Eos # (Auto) (0.0-0.7) K/uL Baso # (Auto) (0.0-0.1) K/uL Sodium (136-146) mmol/L Potassium (3.5-5.1) mmol/L Chloride (98-110) mmol/L Carbon Dioxide (21-31) mmol/L BUN (6.0-23.0) mg/dL Creatinine (0.6-1.5) mg/dL Est Cr Clr Drug Dosing Estimated GFR (MDRD) ml/min Glucose (60-110) mg/dL Calcium (8.8-10.8) mg/dL Total Bilirubin (0.1-1.5) mg/dL AST (5-40) IU/L ALT (8-54) IU/L Alkaline Phosphatase (40-150) Total Protein (6.0-8.0) g/dL Albumin (3.4-4.8) g/dL Globulin (2.0-3.5) g/dL Albumin/Globulin Ratio (1.3-2.8) Lipase (7-80) U/L Urine Color YELLOW Urine Appearance CLOUDY Urine pH 6.0 (5.0-8.0) Ur Specific [place] >= 1.030 (1.001-1.035) Urine Protein TRACE (NEGATIVE) mg/dL Urine Glucose (UA) NEGATIVE (NEGATIVE) mg/dL Urine Ketones TRACE H (NEGATIVE) mg/dL Urine Occult Blood NEGATIVE (NEGATIVE) Urine Nitrite NEGATIVE (NEGATIVE) Urine Bilirubin NEGATIVE (NEGATIVE) Urine Urobilinogen 0.2 (<2.0) EU/dL Ur Leukocyte Esterase TRACE (NEGATIVE) Urine RBC 0-2 (0-2/HPF) Urine WBC 12-15 (0-5/HPF) Ur Epithelial Cells MODERATE (NONE-FEW) Urine Bacteria 1+ H (NEGATIVE) Urine Yeast FEW Meds: Medications Generic Name Dose Route Start Last Admin Trade Name Freq PRN Reason Stop Dose Admin Sodium Chloride 1,000 mls @ 125 mls/hr 07/21/17 02:45 Normal Saline IV STAT [place] Discontinued Medications Generic Name Dose Route Start Last Admin Trade Name Freq PRN Reason Stop Dose Admin Sodium Chloride 1,000 mls @ 999 mls/hr 07/21/17 00:32 07/21/17 01:03 Normal Saline IV 07/21/17 01:32 999 mls/hr STAT ONE Administration Ondansetron HCl 8 mg 07/21/17 00:32 07/21/17 01:03 Zofran IVPUSH 07/21/17 00:33 8 mg ONETIME ONE Administration Departure - Departure Time of Disposition: 02:59 Disposition: Refer to Observation Condition: Fair Clinical Impression: Vomiting, Dehydration - Discharge Information Referrals: Colin Medina MD [Primary Care Provider] - Forms: ED Department Discharge - My Orders Last 24 Hours: My Active Orders 07/21/17 01:54 Abdomen 2V AP Flat Upright [CR] Stat 07/21/17 02:45 Sodium Chloride 0.9% [Normal Saline] 1,000 ml IV STAT 07/21/17 02:58 CULTURE URINE [RM] Stat - Assessment/Plan Last 24 Hours: My Active Orders 07/21/17 01:54 Abdomen 2V AP Flat Upright [CR] Stat 07/21/17 02:45 Sodium Chloride 0.9% [Normal Saline] 1,000 ml IV STAT 07/21/17 02:58 CULTURE URINE [RM] Stat
[2017-07-21 01:42] LABS: CHLORIDE,CL 104 mmol/L (98-110); SODIUM,NA 141 mmol/L (136-146)
[2017-07-21] MEDS ORDERED: Sodium Chloride 0.9% 1,000 ML IV SCH (02:45)
[2017-07-21] MEDS ORDERED: oxyCODONE 5 MG Tab PO PRN (03:19)
[2017-07-21] MEDS ORDERED: Ondansetron 4 MG/2 ML SDV IVPUSH PRN (03:19)
[2017-07-21] MEDS ORDERED: Ondansetron 4 MG Tab.DIS PO PRN (03:19)
[2017-07-21] MEDS: Sodium Chloride 0.9% 1,000 ML IV SCH ×3 (04:26→23:32)
[2017-07-21] MEDS: Ciprofloxacin in D5W 400 MG in Premix Bag 1 BAG IV SCH ×4 (04:33→17:44)
[2017-07-21 06:24] LABS: CHLORIDE,CL 105 mmol/L (98-110); SODIUM,NA 139 mmol/L (136-146)
--- NOTE | 2017-07-21 06:38 | PCM.HP ---
H&P History of Present Illness - General Date of Service: 07/21/17 Admit Problem/Dx: Admission Diagnosis/Problem Admission Diagnosis/Problem Dehydration Source of Information: Patient History Limitations: Reports: No Limitations - History of Present Illness Initial Comments - Free Text/Narative: 66-year-old female presenting to emergency department with chief complaint of nausea and vomiting 12 hours with past medical history of Parkinson's disease and hypothyroidism. Patient initially presented in the emergency department secondary to complaint of multiple episodes of vomiting 12 hours. She states that she has felt ill for the last 26 hours. Her main complaints are nausea and vomiting with fevers and chills. She has had some associated epigastric pain. She has had a cholecystectomy in the past. She denies any diarrhea, bloody stool, or dark tarry stools. States that she ate at [employer] last night by herself. She currently denies any chest pain, palpitations, shortness breath, syncopal episodes, or focal neurologic deficits. She was seen earlier in the ED with similar complaints and dianosed with gastritis and sent home. She return sencondary to continued vomiting and felt to look much worse clinically. Patient has a history of Parkinson's disease. States she was diagnosed in 2005. She has not been taking her medications recently secondary to expense. She was started back on carbidopa levodopa in the emergency department earlier today by Dr. Obando when he saw her in the ED the initial time. Emergency department: Urine was positive for UTI and she was had mild leukocytosis of 11.7 CMP was unremarkable. Abdominal x-ray revealed moderate diverticulosis in the rectosigmoid colon but no other significant findings. Influenza screen was negative. She was given IV Zofran for nausea/vomiting. Patient was admitted for UTI with associated intractable nausea and vomiting. abdomen Pain Score (Numeric/FACES): 4 - Related Data Allergies/Adverse Reactions: Allergies Allergy/AdvReac Type Severity Reaction Status Date / Time acetaminophen [From Ultracet] Allergy Other Verified 07/21/17 00:39 sulfamethoxazole Allergy Other Verified 07/21/17 00:39 [From Bactrim] tramadol [From Ultracet] Allergy Other Verified 07/21/17 00:39 trimethoprim [From Bactrim] Allergy Other Verified 07/21/17 00:39 Home Medications: Home Meds Amitriptyline HCl 150 mg PO BEDTIME 06/04/17 [History] Cholecalciferol (Vitamin D3) [Vitamin D3] 2,000 unit PO DAILY 06/04/17 [History] Magnesium Oxide [Magnesium] 400 mg PO BID 06/04/17 [History] Sucralfate 1 gm PO QIDACANDBED PRN 06/04/17 [History] Allopurinol [Zyloprim] 100 mg PO DAILY 07/19/17 [History] Donepezil [Aricept] 10 mg PO BEDTIME 07/19/17 [History] Gabapentin [Neurontin] 100 mg PO TID 07/19/17 [History] Acetaminophen with Codeine [Tylenol with Codeine #3 Tablet] 1 - 2 tab PO Q4H PRN 07/21/17 [History] Albuterol [Proair HFA] 2 inh IH Q4H PRN 07/21/17 [History] Bisacodyl [Dulcolax] 5 mg PO DAILY PRN 07/21/17 [History] Carbidopa/Levodopa [Carbidopa-Levodopa 25-250] 25 - 250 mg PO TID@07,11,21 07/21 [History] Fexofenadine [Angi] 180 mg PO DAILY PRN 07/21/17 [History] Fluticasone Propionate [Flonase] 2 sprays NASBOTH DAILY 07/21/17 [History] Furosemide 20 mg PO DAILY 07/21/17 [History] Levothyroxine 200 mcg PO ACBREAKFAST 07/21/17 [History] Pramipexole Di-HCl [Mirapex] 1.5 mg PO TID 07/21/17 [History] Vitamin A Palmitate [Vitamin A] 2,400 mcg PO DAILY 07/21/17 [History] Past Medical History - Past Health History Medical/Surgical History: Denies Medical/Surgical History HEENT History: Reports: Cataract, Impaired Vision Other HEENT History: wears glasses 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: High Cholesterol 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: Musculoskeletal History: Reports: Gout Neurological History: Reports: Parkinson's Endocrine/Metabolic History: Reports: Hypothyroidism Dermatologic History: Reports: Other (See Below) Other Dermatologic History: yeast infection lower abdomen - Infectious Disease History Infectious Disease History: Reports: Chicken Pox, Measles, Mumps - Past Surgical History HEENT Surgical History: Reports: Eye Surgery, Other (See Below) GI Surgical History: Reports: Cholecystectomy Musculoskeletal Surgical History: Reports: Other (See Below) Other Musculoskeletal Surgeries/Procedures:: cervical neck fusion, Kyphoplasty Social & Family History - Family History Family Medical History: Noncontributory Cardiac: Reports: [place] Oncologic: Reports: Lymphoma, Ovarian - Tobacco Use Smoking Status *Q: Former Smoker Used Tobacco, but Quit: No Tobacco Use Comment: Former smoker back in 1998 Second Hand Smoke Exposure: No - Caffeine Use Caffeine Use: Reports: Soda, Tea - Recreational Drug Use Recreational Drug Use: No H&P Review of Systems - Review of Systems: Review Of Systems: See Below General: Reports: Fever, Chills, Weakness, Fatigue. Denies: Malaise HEENT: Denies: Dysphasia, Rhinitis, Visual Changes Pulmonary: Denies: Shortness of Breath, Wheezing, Cough, Sputum, Hemoptysis Cardiovascular: Denies: Chest Pain, Palpitations, Lightheadedness Gastrointestinal: Reports: Nausea, Vomiting. Denies: Abdominal Pain, Black Stool, Bloody Stool, Diarrhea Genitourinary: Denies: Dysuria Musculoskeletal: Denies: Neck Pain, Foot Pain Skin: Denies: Cyanosis Psychiatric: Denies: Confusion, Depression Neurological: Denies: Confusion, Dizziness, Headache Hematologic/Lymphatic: Denies: Anemia Exam - Exam Exam: See Below - Vital Signs Vital Signs: Last Vital Signs Temp 97.9 F 07/21/17 04:00 Pulse 75 07/21/17 04:00 Resp 17 07/21/17 04:00 BP 144/88 H 07/21/17 04:00 Pulse Ox 95 07/21/17 04:00 Weight: 92.215 kg - Exam Quality Assessment: DVT Prophylaxis General: Alert, Oriented, Cooperative HEENT: Conjunctiva Clear, EACs Clear, EOMI, Hearing Intact, Mucosa Moist & Caro , Nares Patent, Normal Nasal Septum, Posterior Pharynx Clear, PERRLA Neck: Supple, Trachea Midline, 2 Lungs: Clear to Auscultation, Normal Respiratory Effort Cardiovascular: Regular Rate, Regular Rhythm, Normal S1, Normal S2 GI/Abdominal Exam: Normal Bowel Sounds, Soft, Non-Tender, No Organomegaly, No Distention, No Abnormal Bruit Back Exam: Normal Inspection Extremities: Normal Inspection, Non-Tender, No Pedal Edema, Normal Capillary Refill Peripheral Pulses: 2+: Radial (L), Radial (R), Posterior Tibial (L), Posterior Tibial (R), Dorsalis Pedis (L), Dorsalis Pedis (R) Skin: Warm, Dry, Intact Neurological: Cranial Nerves Intact, Reflexes Equal Bilateral Neuro Extensive - Mental Status: Alert, Oriented x3, Normal Mood/Affect, Normal Cognition Neuro Extensive - Motor, Sensory, Reflexes: CN II-XII Intact, Normal Gait, Normal Reflexes Psychiatric: Alert, Normal Affect, Normal Mood - Patient Data Lab Results Last 24 hrs: Laboratory Results - last 24 hr 07/21/17 07/21/17 07/21/17 Range/Units 05:28 05:28 05:28 WBC 10.00 (4.0-11.0) K/uL RBC 4.71 (4.30-5.90) M/uL Hgb 13.7 (12.0-16.0) g/dL Hct 43.2 (36.0-46.0) % MCV 91.7 (80.0-98.0) fL MCH 29.1 (27.0-32.0) pg MCHC 31.7 (31.0-37.0) g/dL RDW Std Deviation 46.3 (28.0-62.0) fl RDW Coeff of Kelli 14 (11.0-15.0) % Plt Count 193 (150-400) K/uL MPV 12.40 H (7.40-12.00) fL Neut % (Auto) 65.5 (48.0-80.0) % Lymph % (Auto) 27.2 (16.0-40.0) % [place] % (Auto) 4.5 (0.0-15.0) % Eos % (Auto) 2.7 (0.0-7.0) % Baso % (Auto) 0.1 (0.0-1.5) % Neut # (Auto) 6.6 H (1.4-5.7) K/uL Lymph # (Auto) 2.7 H (0.6-2.4) K/uL [place] # (Auto) 0.5 (0.0-0.8) K/uL Eos # (Auto) 0.3 (0.0-0.7) K/uL Baso # (Auto) 0.0 (0.0-0.1) K/uL Nucleated RBC % 0.0 /100WBC Nucleated RBCs # 0 K/uL Sodium 139 (136-146) mmol/L Potassium 4.0 (3.5-5.1) mmol/L Chloride 105 (98-110) mmol/L Carbon Dioxide 25 (21-31) mmol/L BUN 18 (6.0-23.0) mg/dL Creatinine 0.6 (0.6-1.5) mg/dL Est Cr Clr Drug Dosing 84.11 mL/min Estimated GFR (MDRD) > 60.0 ml/min Glucose 93 (60-110) mg/dL Calcium 8.8 (8.8-10.8) mg/dL Magnesium 1.4 L (1.5-2.3) mEq/L Result Diagrams: 07/21/17 05:28 07/21/17 05:28 *Q Meaningful Use (ADM) - VTE *Q VTE Criteria *Q: - Stroke *Q Stroke Criteria *Q: - AMI *Q AMI Criteria *Q: - Problem List (1) UTI (urinary tract infection) SNOMED Code(s): 02961180 ICD Code: N39.0 - URINARY TRACT INFECTION, SITE NOT SPECIFIED Status: Acute Priority: High Current Visit: Yes Qualifiers: Urinary tract infection type: acute cystitis Hematuria presence: without hematuria Qualified Code(s): N30.00 - Acute cystitis without hematuria (2) Intractable vomiting with nausea SNOMED Code(s): 082534411 ICD Code: R11.2 - NAUSEA WITH VOMITING, UNSPECIFIED Status: Acute Priority: High Current Visit: Yes Qualifiers: Vomiting type: unspecified Qualified Code(s): R11.2 - Nausea with vomiting , unspecified (3) Hypothyroidism SNOMED Code(s): 86182975 ICD Code: E03.9 - HYPOTHYROIDISM, UNSPECIFIED Status: Acute Priority: High Current Visit: Yes Qualifiers: Hypothyroidism type: unspecified Qualified Code(s): E03.9 - Hypothyroidism , unspecified (4) Dehydration SNOMED Code(s): 32972709 ICD Code: E86.0 - DEHYDRATION Status: Acute Priority: High Current Visit: Yes (5) Parkinsons disease SNOMED Code(s): 34047684 ICD Code: G20 - PARKINSON'S DISEASE Status: Chronic Priority: Medium Current Visit: Yes Problem List Initiated/Reviewed/Updated: Yes Orders Last 24hrs: Active Orders 24 hr Category Date Time Status Regular Diet [DIET] Diet 07/21/17 Breakfast Active MAGNESIUM [CHEM] Routine Lab 07/21/17 05:28 Results TSH [CHEM] Routine Lab 07/21/17 05:28 Results Ciprofloxacin in D5W [Cipro in D5W 400 MG/200 ML] 400 Med 07/21/17 04:00 Active mg Premix Bag 1 bag IV Q12H Morphine Med 07/21/17 03:19 Active 2 mg IVPUSH Q2H PRN Ondansetron [Zofran ODT] Med 07/21/17 03:19 Active 4 mg PO Q4H PRN Ondansetron [Zofran] Med 07/21/17 03:19 Active 4 mg IVPUSH Q4H PRN Sodium Chloride 0.9% [Normal Saline] 1,000 ml Med 07/21/17 03:30 Active IV ASDIRECTED oxyCODONE Med 07/21/17 03:19 Active 5 mg PO Q6H PRN Medication Orders Sodium Chloride (Normal Saline) 1,000 mls @ 125 mls/hr IV STAT [place] Sodium Chloride (Normal Saline) 1,000 mls @ 125 mls/hr IV ASDIRECTED [place] Last Admin: 07/21/17 04:26 Dose: 125 mls/hr Ciprofloxacin/Dextrose 400 mg/ (Premix) 200 mls @ 200 mls/hr IV Q12H [place] Last Admin: 07/21/17 04:33 Dose: 200 mls/hr Morphine Sulfate (Morphine) 2 mg IVPUSH Q2H PRN PRN Reason: Pain (severe 7-10) Ondansetron HCl (Zofran Odt) 4 mg PO Q4H PRN PRN Reason: Nausea/Vomiting Ondansetron HCl (Zofran) 4 mg IVPUSH Q4H PRN PRN Reason: Nausea/Vomiting Oxycodone HCl (Oxycodone) 5 mg PO Q6H PRN PRN Reason: Pain Last Admin: 07/21/17 05:57 Dose: 5 mg Assessment/Plan Comment:: 66-year-old female admitted UTI and associated intractable nausea and vomiting/gastritis with past medical history of Parkinson's disease and hypothyroidism. UTI: Patient was started on ciprofloxacin last evening. This morning leukocytosis has resolved. Urine culture is pending. Will continue ciprofloxacin and monitor. Gastritis: Suspected with her epigastric pain and nausea and vomiting. We'll treat with IV Protonix as well as Zofran from for nausea and vomiting. Hypothyroidism: TSH ordered this morning was 14.82. She states that her primary care physician Dr. Medina stopped her medication because her TSH was low. We will restart levothyroxine today and monitor closely. Parkinson's disease: Currently asymptomatic we'll restart her previous medications and monitor. VTE Proph: SCD, Heparin Dispo: 1-2 days.
[2017-07-21] MEDS: Morphine 2 MG/ML Syringe IVPUSH PRN ×2 (11:27→21:41)
[2017-07-21] MEDS ORDERED: Magnesium Sulfate/Water 2 GM in Premix Bag 1 BAG IV ONE (11:42)
[2017-07-21] MEDS ORDERED: Morphine 2 MG/ML Syringe IVPUSH PRN (12:21)
[2017-07-21] MEDS ORDERED: Temazepam 15 MG Cap PO PRN (12:21)
[2017-07-21] MEDS ORDERED: Bisacodyl 5 MG Tab PO PRN (12:25)
[2017-07-21] MEDS ORDERED: Albuterol 8 GM Inhaler INH PRN (12:25)
[2017-07-21] MEDS ORDERED: Sucralfate 1 GM Tab PO PRN (12:25)
[2017-07-21] MEDS ORDERED: Pantoprazole 40 MG Vial IVPUSH ONE (12:28)
[2017-07-21] MEDS ORDERED: Gabapentin 100 MG Cap PO SCH (14:00)
[2017-07-21] MEDS ORDERED: Pramipexole 0.25 MG Tab PO SCH (14:00)
[2017-07-21] MEDS: Enoxaparin 40 MG/0.4 ML Syringe SUBCUT SCH (14:32)
[2017-07-21] MEDS: Nystatin Topical Powder 15 GM Bottle TOP SCH ×2 (14:34→21:26)
[2017-07-21] MEDS: Gabapentin 100 MG Cap PO SCH ×2 (14:50→21:25)
[2017-07-21] MEDS: Pramipexole 0.25 MG Tab PO SCH ×2 (14:50→21:24)
[2017-07-21] MEDS: Carbidopa/Levodopa 25-250 MG Tab PO SCH ×2 (15:00→21:26)
--- NOTE | 2017-07-21 16:19 | CR ---
EXAM DATE: 07/21/17 PATIENT'S AGE: 66 Patient: BETHANIE VILLALOBOS Facility: [place], [place] Site . Site : [id number] Study: XRay Abdomen [id number]/25/[id number] 2:25:42 AM Ordering Physician: Hawa Coronel Final Report: INDICATION: Abdominal Pain and vomiting. Patient states upper gastrointestinal study done 2 weeks ago. TECHNIQUE: Abdominal radiograph 4 views COMPARISON: None FINDINGS: Severe degradation of image quality noted due to body habitus. Bowel: Residual oral contrast is seen throughout the colon, opacifying the appendix. Moderate diverticulosis of the descending and rectosigmoid colon seen. Soft tissue: No evidence of pneumoperitoneum present. No suspicious calcifications noted. Previous cholecystectomy noted. Bones: Compression deformity of L1 is present containing methylmethacrylate. IMPRESSION: 1. Moderate diverticulosis of the descending and rectosigmoid colon seen. Dictated by Reji Camarillo MD @ 07/21/2017 2:28:44 AM Dictated by: Reji Camarillo MD @ 07/21/2017 02:29:27 (Electronic Signature) Report Signed by Proxy. [facility]
[2017-07-21] MEDS ORDERED: Donepezil 5 MG Tab PO SCH (21:00)
[2017-07-21] MEDS ORDERED: Carbidopa/Levodopa 25-250 MG Tab PO SCH ×3 (21:00)
[2017-07-21] MEDS ORDERED: Magnesium Oxide 400 MG Tab PO SCH (21:00)
[2017-07-21] MEDS: Donepezil 10 MG Tab PO SCH (21:25)
[2017-07-21] MEDS: Amitriptyline 25 MG Tab PO SCH (21:35)
[2017-07-21] MEDS: Magnesium Oxide 400 MG Tab PO SCH (22:25)
[2017-07-22] MEDS: Ciprofloxacin in D5W 400 MG in Premix Bag 1 BAG IV SCH ×4 (04:02→16:02)
[2017-07-22 05:54] LABS: CHLORIDE,CL 109 mmol/L (98-110); SODIUM,NA 141 mmol/L (136-146)
[2017-07-22] MEDS: Pramipexole 0.25 MG Tab PO SCH ×3 (06:22→21:14)
[2017-07-22] MEDS: Nystatin Topical Powder 15 GM Bottle TOP SCH ×3 (06:23→21:16)
[2017-07-22] MEDS: Gabapentin 100 MG Cap PO SCH ×3 (06:23→21:15)
[2017-07-22] MEDS: Levothyroxine 100 MCG Tab PO SCH (06:31)
[2017-07-22] MEDS: Carbidopa/Levodopa 25-250 MG Tab PO SCH ×4 (06:31→21:16)
[2017-07-22] MEDS ORDERED: Levothyroxine 100 MCG Tab PO SCH (07:30)
[2017-07-22] MEDS: Enoxaparin 40 MG/0.4 ML Syringe SUBCUT SCH (08:44)
[2017-07-22] MEDS: Furosemide 20 MG Tab PO SCH (08:45)
[2017-07-22] MEDS: Magnesium Oxide 400 MG Tab PO SCH ×2 (08:45→21:15)
[2017-07-22] MEDS: Fluticasone Propionate Nasal Spray 16 GM Bottle NASBOTH SCH (08:45)
[2017-07-22] MEDS: Allopurinol 100 MG Tab PO SCH (08:45)
--- NOTE | 2017-07-22 10:58 | PCM.PN ---
- General Info Date of Service: 07/22/17 Admission Dx/Problem (Free Text): Admission Diagnosis/Problem Admission Diagnosis/Problem Dehydration Subjective Update: Noted to be lethargic this morning, awakes only to sternal rub. Unable to obtain ROS. Nursing reports she was able to help transfer to bathroom and chair with PAL life this morning. - Patient Data Vitals - Most Recent: Last Vital Signs Temp 97.9 F 07/22/17 08:00 Pulse 60 07/22/17 08:00 Resp 20 07/22/17 08:00 BP 99/52 L 07/22/17 08:00 Pulse Ox 90 L 07/22/17 08:00 Weight - Most Recent: 92.215 kg Med Orders - Current: Current Medications Acetaminophen (Tylenol) 650 mg PO Q4H PRN PRN Reason: Pain (Mild 1-3)/fever Albuterol (Ventolin Hfa) 0 gm INH Q4H PRN PRN Reason: Wheezing Allopurinol (Zyloprim) 100 mg PO DAILY [facility] Last Admin: 07/22/17 08:45 Dose: 100 mg Amitriptyline HCl (Elavil) 150 mg PO BEDTIME [facility] Last Admin: 07/21/17 21:35 Dose: 150 mg Bisacodyl (Dulcolax) 5 mg PO DAILY PRN PRN Reason: Constipation Carbidopa/Levodopa (Sinemet 25-250 Mg) 1 tab PO TID@0700,1100,2100 [facility] Last Admin: 07/22/17 06:31 Dose: 1 tab Donepezil HCl (Aricept) 10 mg PO BEDTIME [facility] Last Admin: 07/21/17 21:25 Dose: 10 mg Enoxaparin Sodium (Lovenox) 40 mg SUBCUT DAILY [facility] Last Admin: 07/22/17 08:44 Dose: 40 mg Fluticasone Propionate (Flonase) 0 gm NASBOTH DAILY [facility] Last Admin: 07/22/17 08:45 Dose: 2 sprays Furosemide (Lasix) 20 mg PO DAILY [facility] Last Admin: 07/22/17 08:45 Dose: 20 mg Gabapentin (Neurontin) 100 mg PO TID [facility] Last Admin: 07/22/17 06:23 Dose: 100 mg Sodium Chloride (Normal Saline) 1,000 mls @ 125 mls/hr IV ASDIRECTED [facility] Last Infusion: 07/22/17 08:07 Dose: 125 mls/hr Ciprofloxacin/Dextrose 400 mg/ (Premix) 200 mls @ 200 mls/hr IV Q12H [facility] Last Infusion: 07/22/17 05:05 Dose: Infused Levothyroxine Sodium (Synthroid) 200 mcg PO ACBREAKFAST [facility] Last Admin: 07/22/17 06:31 Dose: 200 mcg Magnesium Oxide (Magnesium Oxide) 400 mg PO BID [facility] Last Admin: 07/22/17 08:45 Dose: 400 mg Nystatin (Nystop) 1 gm TOP TID [facility] Last Admin: 07/22/17 06:23 Dose: 1 applic Ondansetron HCl (Zofran) 4 mg IVPUSH Q4H PRN PRN Reason: Nausea/Vomiting Pramipexole Dihydrochloride (Mirapex) 1.5 mg PO TID [facility] Last Admin: 07/22/17 06:22 Dose: 1.5 mg Sucralfate (Carafate) 1 gm PO QIDACANDBED PRN PRN Reason: Heartburn Temazepam (Restoril) 15 mg PO BEDTIME PRN PRN Reason: Sleep Discontinued Medications Carbidopa/Levodopa (Sinemet 25-250 Mg) 1 tab PO TID [facility] Carbidopa/Levodopa (Sinemet 25-250 Mg) 1 tab PO TID@0700,1100,2100 [facility] Donepezil HCl (Aricept) 10 mg PO BEDTIME [facility] Gabapentin (Neurontin) 100 mg PO TID [facility] Last Admin: 07/21/17 14:32 Dose: 100 mg Sodium Chloride (Normal Saline) 1,000 mls @ 999 mls/hr IV STAT ONE Stop: 07/21/17 01:32 Last Admin: 07/21/17 01:03 Dose: 999 mls/hr Sodium Chloride (Normal Saline) 1,000 mls @ 125 mls/hr IV STAT [facility] Magnesium Sulfate 2 gm/ Premix 50 mls @ 50 mls/hr IV ONETIME ONE Stop: 07/21/17 12:41 Last Admin: 07/21/17 13:19 Dose: 50 mls/hr Levothyroxine Sodium (Synthroid) 200 mcg PO ACBREAKFAST [facility] Magnesium Oxide (Magnesium Oxide) 1 mg PO BID [facility] Last Admin: 07/22/17 01:07 Dose: Not Given Morphine Sulfate (Morphine) 2 mg IVPUSH Q2H PRN PRN Reason: Pain (severe 7-10) Last Admin: 07/21/17 21:41 Dose: 2 mg Morphine Sulfate (Morphine) 2 mg IVPUSH Q2H PRN PRN Reason: Pain (severe 7-10) Stop: 07/22/17 12:23 Ondansetron HCl (Zofran) 8 mg IVPUSH ONETIME ONE Stop: 07/21/17 00:33 Last Admin: 07/21/17 01:03 Dose: 8 mg Ondansetron HCl (Zofran Odt) 4 mg PO Q4H PRN PRN Reason: Nausea/Vomiting Oxycodone HCl (Oxycodone) 5 mg PO Q6H PRN PRN Reason: Pain Last Admin: 07/21/17 05:57 Dose: 5 mg Pantoprazole Sodium (Protonix Iv) 80 mg IVPUSH BID ONE Stop: 07/21/17 12:29 Last Admin: 07/21/17 14:32 Dose: 80 mg Pramipexole Dihydrochloride (Mirapex) 1.5 mg PO TID [place] Last Admin: 07/21/17 14:29 Dose: 1.5 mg - Exam General: Obtunded. No: Alert, Oriented, Cooperative Lungs: Clear to Auscultation, Normal Respiratory Effort Cardiovascular: Regular Rate, Regular Rhythm GI/Abdominal Exam: Normal Bowel Sounds, Soft, Non-Tender, No Organomegaly, No Distention, No Abnormal Bruit, No Mass, Pelvis Stable Extremities: Normal Inspection, Normal Range of Motion, Non-Tender, Pedal Edema (+1 non pitting) Neurological: Other (obtunded, awakens and says ouch to sternal rub) - Problem List & Annotations (1) Altered mental status SNOMED Code(s): 234084412 Code(s): R41.82 - ALTERED MENTAL STATUS, UNSPECIFIED Status: Acute Current Visit: Yes Qualifiers: Altered mental status type: somnolence Qualified Code(s): R40.0 - Somnolence (2) Dehydration SNOMED Code(s): 36866760 Code(s): E86.0 - DEHYDRATION Status: Acute Priority: High Current Visit : Yes (3) Hypothyroidism SNOMED Code(s): 70497328 Code(s): E03.9 - HYPOTHYROIDISM, UNSPECIFIED Status: Acute Priority: High Current Visit: Yes Qualifiers: Hypothyroidism type: unspecified Qualified Code(s): E03.9 - Hypothyroidism , unspecified (4) Intractable vomiting with nausea SNOMED Code(s): 387773628 Code(s): R11.2 - NAUSEA WITH VOMITING, UNSPECIFIED Status: Acute Priority : High Current Visit: Yes Qualifiers: Vomiting type: unspecified Qualified Code(s): R11.2 - Nausea with vomiting , unspecified (5) UTI (urinary tract infection) SNOMED Code(s): 05262737 Code(s): N39.0 - URINARY TRACT INFECTION, SITE NOT SPECIFIED Status: Acute Priority: High Current Visit: Yes Qualifiers: Urinary tract infection type: acute cystitis Hematuria presence: without hematuria Qualified Code(s): N30.00 - Acute cystitis without hematuria (6) Parkinsons disease SNOMED Code(s): 21683399 Code(s): G20 - PARKINSON'S DISEASE Status: Chronic Priority: Medium Current Visit: Yes - Problem List Review Problem List Initiated/Reviewed/Updated: Yes - My Orders Last 24 Hours: My Active Orders 07/22/17 10:11 Patient Status [ADT] Routine - Plan Plan:: 66-year-old female admitted UTI and associated intractable nausea and vomiting/gastritis with past medical history of Parkinson's disease and hypothyroidism. 1. AMS: Obtunded this am. Stat head CT, EKG, ABG and CXR. Will place on telemetry and make inpatient. No narcotics since Morphine 2 mg given last night around 2100. All narcotics stopped. Mirapex given this morning, but this is a home medication, but can cause drowsiness. Will continue to monitor and follow stat studies. 2. UTI: Continue Ciprofloxacin. leukocytosis has resolved. Urine culture is pending. 3. Gastritis: unable to assess this am. Suspected with her epigastric pain and nausea and vomiting.Continue IV Protonix. Has not received any Zofran for nausea and vomiting. Reviewed past clinic note from Dr Medina, she has been complaining of some N/V for weeks with 20+ lbs weight loss. Upper GI studies obtained which were normal. 4. Hypothyroidism: TSH 14.82. again, upon review of Dr. Medina's notes, he did stop her Levothyroxine because her TSH 0.02. T3 and T4 were done then, but she was on treatment. Will repeat T3 and T4 now since she has been off therapy. Levothyroxine 200mcg ordered yesterday, will continue and will need PCP follow up. 5. Parkinson's disease: Carbidopa/Levodopa 25/250 mg 1 tab QID restarted in ED. From reviewing Neurology clinic notes, who she saw Dr Peters once in April 2017, she was on Rytary 61.25/245mg 3 capsules FOUR times daily, which exceeds max dosing. As well as Mirapex 1.5 mg TID. She has not followed up with Dr Peters since and reported to Dr Lazo yesterday she was wanting to go to [facility] in [place] for more workup. VTE Proph: SCD, Heparin Dispo: 1-2 days.
--- NOTE | 2017-07-22 12:11 | CR ---
EXAMINATION: Portable chest radiograph. HISTORY: Lethargic. FINDINGS: The trachea is midline. The cardiomediastinal silhouette is within normal limits. No pulmonary infilt rates, effusions or pneumothorax. Osseous structures appear unremarkable. IMPRESSION: No acute cardiopulmonary process.
--- NOTE | 2017-07-22 12:15 | CT ---
EXAMINATION: Non contrast CT head. Coronal and sagittal reformats. HISTORY: lethargy FINDINGS: No evidence of intra or extra axial hemorrhage, mass, midline shift, hydrocephalus or edema. Mild pe riventricular and subcortical white matter hypodensities noted. No hypoattenuation changes in the major vascular territories to suggest acute infarct. No abnormal intracranial calcifications are detected. No evidence of substantial vascular calcificat ions. Paranasal sinuses and mastoid air cells are well aerated without substantial findings. Pituitary fossa appears unremarkable. Calvarium is intact. No evidence of skull fracture. IMPRESSION: 1. No acute intracranial findings. 2. Mild small vessel ischemic changes.
--- NOTE | 2017-07-22 14:12 | PCM.SN ---
- Free Text/Narrative Note: Son, Tricia, here to visit his mom. Dr Lazo and I visited with him. He had just visited with his mother, who woke up and spoke with him. He reports this is a normal for her after periods of no sleep. He reports she because lethargic and "she'll have to go to the bathroom when she wakes up" He was not alarmed with her condition now. All imaging studies returned normal. EKG SB, no acute signs of ischemia. Will continue to monitor.
[2017-07-22] MEDS: Amitriptyline 25 MG Tab PO SCH (21:14)
[2017-07-22] MEDS: Donepezil 10 MG Tab PO SCH (21:15)
[2017-07-22] MEDS: Acetaminophen 325 MG Tab PO PRN (22:05)
[2017-07-23] MEDS: Ciprofloxacin in D5W 400 MG in Premix Bag 1 BAG IV SCH ×4 (03:31→15:33)
[2017-07-23] MEDS: Pramipexole 0.25 MG Tab PO SCH ×3 (06:30→21:18)
[2017-07-23] MEDS: Carbidopa/Levodopa 25-250 MG Tab PO SCH ×3 (06:31→21:28)
[2017-07-23] MEDS: Nystatin Topical Powder 15 GM Bottle TOP SCH ×3 (06:31→21:18)
[2017-07-23] MEDS: Gabapentin 100 MG Cap PO SCH ×3 (06:31→21:18)
[2017-07-23] MEDS: Levothyroxine 100 MCG Tab PO SCH (06:31)
[2017-07-23] MEDS: Acetaminophen 325 MG Tab PO PRN ×2 (06:57→19:30)
[2017-07-23 07:40] LABS: CHLORIDE,CL 103 mmol/L (98-110); SODIUM,NA 138 mmol/L (136-146)
[2017-07-23] MEDS: Magnesium Oxide 400 MG Tab PO SCH ×2 (09:44→21:18)
[2017-07-23] MEDS: Furosemide 20 MG Tab PO SCH (09:44)
[2017-07-23] MEDS: Allopurinol 100 MG Tab PO SCH (09:44)
[2017-07-23] MEDS: Enoxaparin 40 MG/0.4 ML Syringe SUBCUT SCH (09:44)
[2017-07-23] MEDS: Fluticasone Propionate Nasal Spray 16 GM Bottle NASBOTH SCH (09:44)
--- NOTE | 2017-07-23 10:28 | PCM.PN ---
- General Info Date of Service: 07/23/17 Admission Dx/Problem (Free Text): Admission Diagnosis/Problem Admission Diagnosis/Problem Dehydration Subjective Update: Having some abdominal discomfort but seems to be better. Not as much nausea as before. Was up and ambulating this morning with PT. Able to make it to the door and back with balance assistance. States that her son and friend are working all day today until 1 am tomorrow and she has no ride to take her home. Denies any chest pain, palpitations, shortness breath, syncopal episodes, or new focal neurologic deficits. - Review of Systems General: Reports: Weakness, Fatigue, Malaise. Denies: Fever, Chills HEENT: Denies: Headaches, Visual Changes Pulmonary: Denies: Shortness of Breath, Hemoptysis Cardiovascular: Denies: Chest Pain, Palpitations, Edema Gastrointestinal: Reports: Abdominal Pain, Nausea. Denies: Diarrhea, Vomiting Genitourinary: Denies: Dysuria, Hematuria Musculoskeletal: Reports: Leg Pain. Denies: Neck Pain Skin: Denies: Cyanosis Neurological: Denies: Confusion, Dizziness Psychiatric: Denies: Confusion - Patient Data Vitals - Most Recent: Last Vital Signs Temp 97.4 F 07/23/17 08:00 Pulse 67 07/23/17 08:00 Resp 16 07/23/17 08:00 BP 134/67 07/23/17 08:00 Pulse Ox 95 07/23/17 08:00 Weight - Most Recent: 92.215 kg I&O - Last 24 Hours: Intake & Output 07/22/17 07/23/17 07/23/17 22:59 06:59 14:59 Intake Total 750 850 Output Total 450 1800 Balance 300 -950 Lab Results Last 24 Hours: Laboratory Results - last 24 hr 07/22/17 07/23/17 07/23/17 Range/Units 10:45 06:29 06:29 WBC 7.93 (4.0-11.0) K/uL RBC 4.39 (4.30-5.90) M/uL Hgb 12.7 (12.0-16.0) g/dL Hct 39.8 (36.0-46.0) % MCV 90.7 (80.0-98.0) fL MCH 28.9 (27.0-32.0) pg MCHC 31.9 (31.0-37.0) g/dL RDW Std Deviation 46.0 (28.0-62.0) fl RDW Coeff of Kelli 14 (11.0-15.0) % Plt Count 151 (150-400) K/uL MPV 12.20 H (7.40-12.00) fL Neut % (Auto) 66.6 (48.0-80.0) % Lymph % (Auto) 24.7 (16.0-40.0) % [place] % (Auto) 5.8 (0.0-15.0) % Eos % (Auto) 2.8 (0.0-7.0) % Baso % (Auto) 0.1 (0.0-1.5) % Neut # (Auto) 5.3 (1.4-5.7) K/uL Lymph # (Auto) 2.0 (0.6-2.4) K/uL [place] # (Auto) 0.5 (0.0-0.8) K/uL Eos # (Auto) 0.2 (0.0-0.7) K/uL Baso # (Auto) 0.0 (0.0-0.1) K/uL Nucleated RBC % 0.0 /100WBC Nucleated RBCs # 0 K/uL ABG pH 7.353 (7.35-7.45) ABG pCO2 48 H (35-45) mmHG ABG pO2 63 L (75-100) mmHG ABG HCO3 27 H (22-26) mEq/L ABG Total CO2 24.7 ABG Base Excess 0.5 (-2.0-2.0) Sodium 138 (136-146) mmol/L Potassium 3.8 (3.5-5.1) mmol/L Chloride 103 (98-110) mmol/L Carbon Dioxide 27 (21-31) mmol/L BUN 10 (6.0-23.0) mg/dL Creatinine 0.7 (0.6-1.5) mg/dL Est Cr Clr Drug Dosing 71.98 mL/min Estimated GFR (MDRD) > 60.0 ml/min Glucose 82 (60-110) mg/dL Calcium 8.7 L (8.8-10.8) mg/dL Med Orders - Current: Current Medications Acetaminophen (Tylenol) 650 mg PO Q4H PRN PRN Reason: Pain (Mild 1-3)/fever Last Admin: 07/23/17 06:57 Dose: 650 mg Albuterol (Ventolin Hfa) 0 gm INH Q4H PRN PRN Reason: Wheezing Allopurinol (Zyloprim) 100 mg PO DAILY [facility] Last Admin: 07/23/17 09:44 Dose: 100 mg Amitriptyline HCl (Elavil) 150 mg PO BEDTIME [facility] Last Admin: 07/22/17 21:14 Dose: 150 mg Bisacodyl (Dulcolax) 5 mg PO DAILY PRN PRN Reason: Constipation Carbidopa/Levodopa (Sinemet 25-250 Mg) 1 tab PO TID@0700,1100,2100 [facility] Last Admin: 07/23/17 06:31 Dose: 1 tab Donepezil HCl (Aricept) 10 mg PO BEDTIME [facility] Last Admin: 07/22/17 21:15 Dose: 10 mg Enoxaparin Sodium (Lovenox) 40 mg SUBCUT DAILY [facility] Last Admin: 07/23/17 09:44 Dose: 40 mg Fluticasone Propionate (Flonase) 0 gm NASBOTH DAILY [facility] Last Admin: 07/23/17 09:44 Dose: 2 sprays Furosemide (Lasix) 20 mg PO DAILY [facility] Last Admin: 07/23/17 09:44 Dose: 20 mg Gabapentin (Neurontin) 100 mg PO TID [facility] Last Admin: 07/23/17 06:31 Dose: 100 mg Ciprofloxacin/Dextrose 400 mg/ (Premix) 200 mls @ 200 mls/hr IV Q12H [facility] Last Admin: 07/23/17 03:31 Dose: 200 mls/hr Levothyroxine Sodium (Synthroid) 200 mcg PO ACBREAKFAST [facility] Last Admin: 07/23/17 06:31 Dose: 200 mcg Magnesium Oxide (Magnesium Oxide) 400 mg PO BID [facility] Last Admin: 07/23/17 09:44 Dose: 400 mg Nystatin (Nystop) 1 gm TOP TID [facility] Last Admin: 07/23/17 06:31 Dose: 1 applic Ondansetron HCl (Zofran) 4 mg IVPUSH Q4H PRN PRN Reason: Nausea/Vomiting Last Admin: 07/22/17 14:00 Dose: 4 mg Pramipexole Dihydrochloride (Mirapex) 1.5 mg PO TID [facility] Last Admin: 07/23/17 06:30 Dose: 1.5 mg Sucralfate (Carafate) 1 gm PO QIDACANDBED PRN PRN Reason: Heartburn Temazepam (Restoril) 15 mg PO BEDTIME PRN PRN Reason: Sleep Discontinued Medications Carbidopa/Levodopa (Sinemet 25-250 Mg) 1 tab PO TID [facility] Carbidopa/Levodopa (Sinemet 25-250 Mg) 1 tab PO TID@0700,1100,2100 [facility] Donepezil HCl (Aricept) 10 mg PO BEDTIME [place] Gabapentin (Neurontin) 100 mg PO TID [facility] Last Admin: 07/21/17 14:32 Dose: 100 mg Sodium Chloride (Normal Saline) 1,000 mls @ 999 mls/hr IV STAT ONE Stop: 07/21/17 01:32 Last Admin: 07/21/17 01:03 Dose: 999 mls/hr Sodium Chloride (Normal Saline) 1,000 mls @ 125 mls/hr IV STAT [facility] Sodium Chloride (Normal Saline) 1,000 mls @ 125 mls/hr IV ASDIRECTED [facility] Last Infusion: 07/22/17 08:07 Dose: 125 mls/hr Magnesium Sulfate 2 gm/ Premix 50 mls @ 50 mls/hr IV ONETIME ONE Stop: 07/21/17 12:41 Last Admin: 07/21/17 13:19 Dose: 50 mls/hr Levothyroxine Sodium (Synthroid) 200 mcg PO ACBREAKFAST [facility] Magnesium Oxide (Magnesium Oxide) 1 mg PO BID [facility] Last Admin: 07/22/17 01:07 Dose: Not Given Morphine Sulfate (Morphine) 2 mg IVPUSH Q2H PRN PRN Reason: Pain (severe 7-10) Last Admin: 07/21/17 21:41 Dose: 2 mg Morphine Sulfate (Morphine) 2 mg IVPUSH Q2H PRN PRN Reason: Pain (severe 7-10) Stop: 07/22/17 12:23 Ondansetron HCl (Zofran) 8 mg IVPUSH ONETIME ONE Stop: 07/21/17 00:33 Last Admin: 07/21/17 01:03 Dose: 8 mg Ondansetron HCl (Zofran Odt) 4 mg PO Q4H PRN PRN Reason: Nausea/Vomiting Oxycodone HCl (Oxycodone) 5 mg PO Q6H PRN PRN Reason: Pain Last Admin: 07/21/17 05:57 Dose: 5 mg Pantoprazole Sodium (Protonix Iv) 80 mg IVPUSH BID ONE Stop: 07/21/17 12:29 Last Admin: 07/21/17 14:32 Dose: 80 mg Pramipexole Dihydrochloride (Mirapex) 1.5 mg PO TID [place] Last Admin: 07/21/17 14:29 Dose: 1.5 mg - Exam Quality Assessment: DVT Prophylaxis General: Alert, Oriented, Cooperative, No Acute Distress HEENT: Pupils Equal, Pupils Reactive, EOMI, Mucous Membr. Moist/[place] Neck: Supple, Trachea Midline, No JVD Lungs: Clear to Auscultation, Normal Respiratory Effort Cardiovascular: Regular Rate, Regular Rhythm GI/Abdominal Exam: Normal Bowel Sounds, Soft, Non-Tender, No Organomegaly, No Distention Back Exam: Normal Inspection Extremities: Normal Inspection, Non-Tender, No Pedal Edema, Normal Capillary Refill Skin: Warm, Dry, Intact Neurological: No New Focal Deficit Psy/Mental Status: Alert, Normal Affect, Normal Mood - Problem List & Annotations (1) UTI (urinary tract infection) SNOMED Code(s): 96129326 Code(s): N39.0 - URINARY TRACT INFECTION, SITE NOT SPECIFIED Status: Acute Priority: High Current Visit: Yes Qualifiers: Urinary tract infection type: acute cystitis Hematuria presence: without hematuria Qualified Code(s): N30.00 - Acute cystitis without hematuria (2) Intractable vomiting with nausea SNOMED Code(s): 420680429 Code(s): R11.2 - NAUSEA WITH VOMITING, UNSPECIFIED Status: Resolved Priority: High Current Visit: Yes Qualifiers: Vomiting type: unspecified Qualified Code(s): R11.2 - Nausea with vomiting , unspecified (3) Hypothyroidism SNOMED Code(s): 59424986 Code(s): E03.9 - HYPOTHYROIDISM, UNSPECIFIED Status: Acute Priority: High Current Visit: Yes Qualifiers: Hypothyroidism type: acquired Qualified Code(s): E03.9 - Hypothyroidism, unspecified (4) Dehydration SNOMED Code(s): 50033702 Code(s): E86.0 - DEHYDRATION Status: Resolved Priority: High Current Visit: Yes (5) Parkinsons disease SNOMED Code(s): 53330510 Code(s): G20 - PARKINSON'S DISEASE Status: Chronic Priority: Medium Current Visit: Yes - Problem List Review Problem List Initiated/Reviewed/Updated: Yes - My Orders Last 24 Hours: My Active Orders 07/22/17 11:30 Telemetry Monitoring [Cardiac Monitoring] [RC] Q8H - Plan Plan:: 66-year-old female admitted 07/21/17 for UTI and associated intractable nausea and vomiting/gastritis with past medical history of Parkinson's disease and hypothyroidism. 1. AMS: Resolved. A&O x3 this morning. Son stated yesterday that she has episodes similar to yesterday and that this is her normal of being extremely droggy for a day and then being back to her normal self. CT of Head, EKG, ABG, and CXR yesterday were all unremarkable. Will continue to monitor. 2. UTI: Continue Ciprofloxacin day 3, leukocytosis resolved. Urine culture yeast and normal jax. 3. Gastritis: Epigastric pain most likely from nausea and vomiting. Patient does history of this cyclical N/V. Continue IV Protonix and Zofran. Past clinic note from Dr Medina, patient complaining of some N/V for weeks with 20+ lbs weight loss. Upper GI studies obtained which were normal. 4. Hypothyroidism: Restarted synthroid at 200 mcg yesterday. Repeat T3 and T4 low indicating hypothyroidism. TSH 14.[address] admission[address] of Dr[address] Medina's notes, he did stop her Levothyroxine because her TSH 0.02. T3 and T4 were done then, but she was on treatment. Will need PCP follow up. 5. Parkinson's disease: Carbidopa/Levodopa 25/250 mg 1 tab QID restarted in ED. From reviewing Neurology clinic notes, who she saw Dr Peters once in April 2017, she was on Rytary 61.25/245mg 3 capsules FOUR times daily, which exceeds max dosing. As well as Mirapex 1.5 mg TID. She has not followed up with Dr Peters. She is requesting a referral to [facility] for neurology as her daughter lives there. She did give the number to nursing. VTE Proph: SCD, Heparin Dispo: Patient states that she cannot go home today because her son and friend are both working all day until 1 am tomorrow morning. She medically stable at this point and okay to go home but has no assistance to get there and would need help secondary to her Parkinson's. PT this morning did state that she was able to ambulate on her own to the door and back.
[2017-07-23] MEDS: Amitriptyline 25 MG Tab PO SCH (21:17)
[2017-07-23] MEDS: Donepezil 10 MG Tab PO SCH (21:18)
[2017-07-24] MEDS: Ciprofloxacin in D5W 400 MG in Premix Bag 1 BAG IV SCH ×2 (03:42)
[2017-07-24] MEDS: Pramipexole 0.25 MG Tab PO SCH ×2 (05:45→13:37)
[2017-07-24] MEDS: Gabapentin 100 MG Cap PO SCH ×2 (05:45→13:37)
[2017-07-24] MEDS: Nystatin Topical Powder 15 GM Bottle TOP SCH ×2 (05:45→13:36)
[2017-07-24] MEDS: Levothyroxine 100 MCG Tab PO SCH (06:36)
[2017-07-24] MEDS: Carbidopa/Levodopa 25-250 MG Tab PO SCH ×2 (06:36→11:14)
[2017-07-24 06:39] LABS: CHLORIDE,CL 103 mmol/L (98-110); SODIUM,NA 140 mmol/L (136-146)
[2017-07-24] MEDS: Furosemide 20 MG Tab PO SCH (09:48)
[2017-07-24] MEDS: Enoxaparin 40 MG/0.4 ML Syringe SUBCUT SCH (09:48)
[2017-07-24] MEDS: Allopurinol 100 MG Tab PO SCH (09:48)
[2017-07-24] MEDS: Magnesium Oxide 400 MG Tab PO SCH (09:48)
[2017-07-24] MEDS: Fluticasone Propionate Nasal Spray 16 GM Bottle NASBOTH SCH (09:56)
--- NOTE | 2017-07-24 12:57 | PCM.DCSUM1 ---
Discharge Summary - Discharge Data Discharge Date: 07/24/17 Discharge Disposition: Home, Self-Care 01 Condition: Good - Patient Summary/Data Hospital Course: 66-year-old female admitted for intractable nausea and vomiting thought due to gastritis and UTI. Her urine was postive for UTI and she had a mild leukocytosis of 11.7. Her CMP was unremarkable. Abdominal x-ray revealed moderate diverticulosis in the rectosigmoid colon bu no other significant findings. She was treated with IV fluids, zofran, protonix, and Ciprofloxacin. She did have improvement in her symptoms. She is being discharged home today to have follow up with Dr. Nava. - Discharge Plan Prescriptions/Med Rec: Carbidopa/Levodopa [Sinemet 25-250 MG] 1 tab PO TID@0700,1100,2100 #90 tablet Ciprofloxacin [IMW: Ciprofloxacin HCl] 500 mg PO BID #6 tab Pantoprazole Sodium [Protonix] 20 mg PO DAILY #20 tablet. Home Medications: Home Meds Amitriptyline HCl 150 mg PO BEDTIME 06/04/17 [History] Cholecalciferol (Vitamin D3) [Vitamin D3] 2,000 unit PO DAILY 06/04/17 [History] Magnesium Oxide [Magnesium] 400 mg PO BID 06/04/17 [History] Sucralfate 1 gm PO QIDACANDBED PRN 06/04/17 [History] Allopurinol [Zyloprim] 100 mg PO DAILY 07/19/17 [History] Donepezil [Aricept] 10 mg PO BEDTIME 07/19/17 [History] Gabapentin [Neurontin] 100 mg PO TID 07/19/17 [History] Albuterol [Proair HFA] 2 inh IH Q4H PRN 07/21/17 [History] Bisacodyl [Dulcolax] 5 mg PO DAILY PRN 07/21/17 [History] Fexofenadine [Angi] 180 mg PO DAILY PRN 07/21/17 [History] Fluticasone Propionate [Flonase] 2 sprays NASBOTH DAILY 07/21/17 [History] Furosemide 20 mg PO DAILY 07/21/17 [History] Levothyroxine 200 mcg PO ACBREAKFAST 07/21/17 [History] Pramipexole Di-HCl [Mirapex] 1.5 mg PO TID 07/21/17 [History] Vitamin A Palmitate [Vitamin A] 2,400 mcg PO DAILY 07/21/17 [History] Carbidopa/Levodopa [Sinemet 25-250 MG] 1 tab PO TID@0700,1100,2100 #90 tablet [Rx] Ciprofloxacin [IMW: Ciprofloxacin HCl] 500 mg PO BID #6 tab 07/24/17 [Rx] Pantoprazole Sodium [Protonix] 20 mg PO DAILY #20 tablet. 07/24/17 [Rx] Patient Handouts: Carbidopa; Levodopa tablets, Confusion, Ciprofloxacin tablets Referrals: Colin Medina MD [Primary Care Provider] - 08/05/17 12:00 pm - Patient Data Vitals - Most Recent: Last Vital Signs Temp 36.2 C 07/24/17 12:00 Pulse 66 07/24/17 12:00 Resp 16 07/24/17 12:00 BP 114/59 L 07/24/17 12:00 Pulse Ox 97 07/24/17 12:00 Weight - Most Recent: 92.215 kg I&O - Last 24 hours: Intake & Output 07/23/17 07/24/17 07/24/17 22:59 06:59 14:59 Intake Total 900 400 Output Total 1520 1500 Balance -620 -1100 Lab Results - Last 24 hrs: Laboratory Results - last 24 hr 07/24/17 07/24/17 Range/Units 05:40 05:40 WBC 7.16 (4.0-11.0) K/uL RBC 4.32 (4.30-5.90) M/uL Hgb 12.6 (12.0-16.0) g/dL Hct 38.6 (36.0-46.0) % MCV 89.4 (80.0-98.0) fL MCH 29.2 (27.0-32.0) pg MCHC 32.6 (31.0-37.0) g/dL RDW Std Deviation 45.6 (28.0-62.0) fl RDW Coeff of Kelli 14 (11.0-15.0) % Plt Count 136 L (150-400) K/uL MPV 12.60 H (7.40-12.00) fL Neut % (Auto) 73.0 (48.0-80.0) % Lymph % (Auto) 16.1 (16.0-40.0) % [place] % (Auto) 8.7 (0.0-15.0) % Eos % (Auto) 2.1 (0.0-7.0) % Baso % (Auto) 0.1 (0.0-1.5) % Neut # (Auto) 5.2 (1.4-5.7) K/uL Lymph # (Auto) 1.2 (0.6-2.4) K/uL [place] # (Auto) 0.6 (0.0-0.8) K/uL Eos # (Auto) 0.2 (0.0-0.7) K/uL Baso # (Auto) 0.0 (0.0-0.1) K/uL Nucleated RBC % 0.0 /100WBC Nucleated RBCs # 0 K/uL Sodium 140 (136-146) mmol/L Potassium 3.5 (3.5-5.1) mmol/L Chloride 103 (98-110) mmol/L Carbon Dioxide 28 (21-31) mmol/L BUN 8 (6.0-23.0) mg/dL Creatinine 0.7 (0.6-1.5) mg/dL Est Cr Clr Drug Dosing 71.98 mL/min Estimated GFR (MDRD) > 60.0 ml/min Glucose 96 (60-110) mg/dL Calcium 8.3 L (8.8-10.8) mg/dL Med Orders - Current: Current Medications Acetaminophen (Tylenol) 650 mg PO Q4H PRN PRN Reason: Pain (Mild 1-3)/fever Last Admin: 07/23/17 19:30 Dose: 650 mg Albuterol (Ventolin Hfa) 0 gm INH Q4H PRN PRN Reason: Wheezing Allopurinol (Zyloprim) 100 mg PO DAILY [facility] Last Admin: 07/24/17 09:48 Dose: 100 mg Amitriptyline HCl (Elavil) 150 mg PO BEDTIME [facility] Last Admin: 07/23/17 21:17 Dose: 150 mg Bisacodyl (Dulcolax) 5 mg PO DAILY PRN PRN Reason: Constipation Carbidopa/Levodopa (Sinemet 25-250 Mg) 1 tab PO TID@0700,1100,2100 [facility] Last Admin: 07/24/17 11:14 Dose: 1 tab Donepezil HCl (Aricept) 10 mg PO BEDTIME [facility] Last Admin: 07/23/17 21:18 Dose: 10 mg Enoxaparin Sodium (Lovenox) 40 mg SUBCUT DAILY [facility] Last Admin: 07/24/17 09:48 Dose: 40 mg Fluticasone Propionate (Flonase) 0 gm NASBOTH DAILY [facility] Last Admin: 07/24/17 09:56 Dose: 2 sprays Furosemide (Lasix) 20 mg PO DAILY [facility] Last Admin: 07/24/17 09:48 Dose: 20 mg Gabapentin (Neurontin) 100 mg PO TID [facility] Last Admin: 07/24/17 05:45 Dose: 100 mg Ciprofloxacin/Dextrose 400 mg/ (Premix) 200 mls @ 200 mls/hr IV Q12H [facility] Last Admin: 07/24/17 03:42 Dose: 200 mls/hr Levothyroxine Sodium (Synthroid) 200 mcg PO ACBREAKFAST [facility] Last Admin: 07/24/17 06:36 Dose: 200 mcg Magnesium Oxide (Magnesium Oxide) 400 mg PO BID [facility] Last Admin: 07/24/17 09:48 Dose: 400 mg Nystatin (Nystop) 1 gm TOP TID [facility] Last Admin: 07/24/17 05:45 Dose: 1 applic Ondansetron HCl (Zofran) 4 mg IVPUSH Q4H PRN PRN Reason: Nausea/Vomiting Last Admin: 07/22/17 14:00 Dose: 4 mg Pramipexole Dihydrochloride (Mirapex) 1.5 mg PO TID [facility] Last Admin: 07/24/17 05:45 Dose: 1.5 mg Sucralfate (Carafate) 1 gm PO QIDACANDBED PRN PRN Reason: Heartburn Temazepam (Restoril) 15 mg PO BEDTIME PRN PRN Reason: Sleep Discontinued Medications Carbidopa/Levodopa (Sinemet 25-250 Mg) 1 tab PO TID [facility] Carbidopa/Levodopa (Sinemet 25-250 Mg) 1 tab PO TID@0700,1100,2100 [facility] Donepezil HCl (Aricept) 10 mg PO BEDTIME [facility] Gabapentin (Neurontin) 100 mg PO TID [facility] Last Admin: 07/21/17 14:32 Dose: 100 mg Sodium Chloride (Normal Saline) 1,000 mls @ 999 mls/hr IV STAT ONE Stop: 07/21/17 01:32 Last Admin: 07/21/17 01:03 Dose: 999 mls/hr Sodium Chloride (Normal Saline) 1,000 mls @ 125 mls/hr IV STAT [place] Sodium Chloride (Normal Saline) 1,000 mls @ 125 mls/hr IV ASDIRECTED [facility] Last Infusion: 07/22/17 08:07 Dose: 125 mls/hr Magnesium Sulfate 2 gm/ Premix 50 mls @ 50 mls/hr IV ONETIME ONE Stop: 07/21/17 12:41 Last Admin: 07/21/17 13:19 Dose: 50 mls/hr Levothyroxine Sodium (Synthroid) 200 mcg PO ACBREAKFAST [facility] Magnesium Oxide (Magnesium Oxide) 1 mg PO BID [facility] Last Admin: 07/22/17 01:07 Dose: Not Given Morphine Sulfate (Morphine) 2 mg IVPUSH Q2H PRN PRN Reason: Pain (severe 7-10) Last Admin: 07/21/17 21:41 Dose: 2 mg Morphine Sulfate (Morphine) 2 mg IVPUSH Q2H PRN PRN Reason: Pain (severe 7-10) Stop: 07/22/17 12:23 Ondansetron HCl (Zofran) 8 mg IVPUSH ONETIME ONE Stop: 07/21/17 00:33 Last Admin: 07/21/17 01:03 Dose: 8 mg Ondansetron HCl (Zofran Odt) 4 mg PO Q4H PRN PRN Reason: Nausea/Vomiting Oxycodone HCl (Oxycodone) 5 mg PO Q6H PRN PRN Reason: Pain Last Admin: 07/21/17 05:57 Dose: 5 mg Pantoprazole Sodium (Protonix Iv) 80 mg IVPUSH BID ONE Stop: 07/21/17 12:29 Last Admin: 07/21/17 14:32 Dose: 80 mg Pramipexole Dihydrochloride (Mirapex) 1.5 mg PO TID [facility] Last Admin: 07/21/17 14:29 Dose: 1.5 mg *Q Meaningful Use (DIS) - VTE *Q VTE Criteria *Q: - Stroke *Q Stroke Criteria *Q: - AMI *Q AMI Criteria *Q:
== END 2017-07-24 14:45 | disposition home or self-care (01) | DRG 690 ==
LOC: MW.ED 00:25 → MW.MS 03:00 → OBSVTOIN 07-22 10:05 → MW.MS 07-22 10:05
PROVIDERS: ADMIT Family Medicine; ATTEND Family Medicine
DX: R11.10 Vomiting, unspecified (principal); N30.00 Acute cystitis without hematuria; E86.0 Dehydration; R11.2 Nausea with vomiting, unspecified; I10 Essential (primary) hypertension; K57.30 Diverticulosis of large intestine without perforation or abscess without bleeding; G20 Parkinson's disease; R40.0 Somnolence; E03.9 Hypothyroidism, unspecified; E78.00 Pure hypercholesterolemia, unspecified; Z88.8 Allergy status to other drugs, medicaments and biological substances; Z79.899 Other long term (current) drug therapy; Z87.891 Personal history of nicotine dependence
CPT/HCPCS: 36415 ×2; 74019; 80048 ×2; 80053; 81001; 83690; 83735 ×2; 84439; 84443; 84481; 85025 ×3; 87086; 87804 ×2; 96361; 96374; 97161; 97530; 99285; A9270 ×19; C9113; J0744 ×3; J1650 ×2; J2270 ×2; J2405; J3475; J7040 ×4; 36600; 70450; 70450-26; 71045; 71045-26; 82803; 93005; 96365; 96366; 96372; 96375; 96376; G0378

== ENCOUNTER 2017-10-13 22:39 | Emergency (ER) | payer MEDICARE ==
--- NOTE | 2017-10-13 23:13 | EDM.PDOC ---
ED HPI GENERAL MEDICAL PROBLEM - General Chief Complaint: Laceration Stated Complaint: PT CUT RT MIDDLE FINGER Time Seen by Provider: 10/13/17 23:09 - History of Present Illness INITIAL COMMENTS - FREE TEXT/NARRATIVE: HISTORY AND PHYSICAL: History of present illness: Patient 67-year-old female who presents status post an injury which he sustained multiple lacerations. There is no other trauma concern she's up-to- date on her tetanus Review of systems: As per history of present illness and below otherwise all systems reviewed and negative. Past medical history: As per history of present illness and as reviewed below otherwise noncontributory. Surgical history: As per history of present illness and as reviewed below otherwise noncontributory. Social history: No reported history of drug or alcohol abuse. Family history: As per history of present illness and as reviewed below otherwise noncontributory. Physical exam: HEENT: Atraumatic, normocephalic, pupils reactive, negative for conjunctival pallor or scleral icterus, mucous membranes moist, throat clear, neck supple, nontender, trachea midline. Lungs: Clear to auscultation, breath sounds equal bilaterally, chest nontender. Heart: S1S2, regular, negative for clicks, rubs, or JVD. Abdomen: Soft, nondistended, nontender. Negative for masses or hepatosplenomegaly. Negative for costovertebral tenderness. Pelvis: Stable nontender. Genitourinary: Deferred. Rectal: Deferred. Extremities: Right hand has multiple lacerations that are relatively superficial with good hemostasis is no tendon involvement totaling please lacerations approximately 5 cm involved multiple digits Neuro: Awake, alert, oriented. Cranial nerves II through XII unremarkable. Cerebellum unremarkable. Motor and sensory unremarkable throughout. Exam nonfocal. Diagnostics: None Therapeutics: The wound was irrigated and dressed with occlusive dressing and bacitracin Impression: # 1 hand injury Definitive disposition and diagnosis as appropriate pending reevaluation and review of above. right pinky finger Pain Score (Numeric/FACES): 5 - Related Data Allergies Allergy/AdvReac Type Severity Reaction Status Date / Time sulfamethoxazole Allergy Other Verified 10/13/17 23:02 [From Bactrim] tramadol [From Ultracet] Allergy Other Verified 10/13/17 23:02 trimethoprim [From Bactrim] Allergy Other Verified 10/13/17 23:02 Home Meds: Home Meds Amitriptyline HCl 150 mg PO BEDTIME 06/04/17 [History] Cholecalciferol (Vitamin D3) [Vitamin D3] 2,000 unit PO DAILY 06/04/17 [History] Magnesium Oxide [Magnesium] 400 mg PO BID 06/04/17 [History] Sucralfate 1 gm PO QIDACANDBED PRN 06/04/17 [History] Allopurinol [Zyloprim] 100 mg PO DAILY 07/19/17 [History] Donepezil [Aricept] 10 mg PO BEDTIME 07/19/17 [History] Gabapentin [Neurontin] 100 mg PO TID 07/19/17 [History] Albuterol [Proair HFA] 2 inh IH Q4H PRN 07/21/17 [History] Bisacodyl [Dulcolax] 5 mg PO DAILY PRN 07/21/17 [History] Fexofenadine [Angi] 180 mg PO DAILY PRN 07/21/17 [History] Fluticasone Propionate [Flonase] 2 sprays NASBOTH DAILY 07/21/17 [History] Furosemide 20 mg PO DAILY 07/21/17 [History] Levothyroxine 200 mcg PO ACBREAKFAST 07/21/17 [History] Pramipexole Di-HCl [Mirapex] 1.5 mg PO TID 07/21/17 [History] Vitamin A Palmitate [Vitamin A] 2,400 mcg PO DAILY 07/21/17 [History] Carbidopa/Levodopa [Sinemet 25-250 MG] 1 tab PO TID@0700,1100,2100 #90 tablet [Rx] Ciprofloxacin [IMW: Ciprofloxacin HCl] 500 mg PO BID #6 tab 07/24/17 [Rx] Pantoprazole Sodium [Protonix] 20 mg PO DAILY #20 tablet. 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: Musculoskeletal History: Reports: Gout Neurological History: Reports: Parkinson's Psychiatric History: Reports: None Endocrine/Metabolic History: Reports: Hypothyroidism Hematologic History: Reports: None Immunologic History: Reports: None Oncologic (Cancer) History: Reports: None Dermatologic History: Reports: Other (See Below) Other Dermatologic History: yeast infection lower abdomen - Infectious Disease History Infectious Disease History: Reports: None - Past Surgical History HEENT Surgical History: Reports: Eye Surgery, Other (See Below) GI Surgical History: Reports: Cholecystectomy Musculoskeletal Surgical History: Reports: Other (See Below) Other Musculoskeletal Surgeries/Procedures:: cervical neck fusion, Kyphoplasty Social & Family History - Family History Family Medical History: Noncontributory Cardiac: Reports: [place] Oncologic: Reports: Lymphoma, Ovarian - Tobacco Use Smoking Status *Q: Never Smoker Used Tobacco, but Quit: No Second Hand Smoke Exposure: No - Caffeine Use Caffeine Use: Reports: None - Recreational Drug Use Recreational Drug Use: No ED ROS GENERAL - Review of Systems Review Of Systems: ROS reveals no pertinent complaints other than HPI. ED EXAM, SKIN/RASH Exam: See Below (See dictation) Course - Vital Signs Last Recorded V/S: Last Vital Signs Temp 36.4 C 10/13/17 23:02 Pulse 89 10/13/17 23:02 Resp 18 10/13/17 23:02 BP 137/76 10/13/17 23:02 Pulse Ox 98 10/13/17 23:02 Departure - Departure Time of Disposition: 23:12 Disposition: Home, Self-Care 01 Condition: Good Clinical Impression: Hand injury - Discharge Information Referrals: PCP,None [Primary Care Provider] - Additional Instructions: The following information is given to patients seen in the emergency department who are being discharged to home. This information is to outline your options for follow-up care. We provide all patients seen in our emergency department with a follow-up referral. The need for follow-up, as well as the timing and circumstances, are variable depending upon the specifics of your emergency department visit. If you don't have a primary care physician on staff, we will provide you with a referral. We always advise you to contact your personal physician following an emergency department visit to inform them of the circumstance of the visit and for follow-up with them and/or the need for any referrals to a consulting specialist. The emergency department will also refer you to a specialist when appropriate. This referral assures that you have the opportunity for followup care with a specialist. All of these measure are taken in an effort to provide you with optimal care, which includes your followup. Under all circumstances we always encourage you to contact your private physician who remains a resource for coordinating your care. When calling for followup care, please make the office aware that this follow-up is from your recent emergency room visit. If for any reason you are refused follow-up, please contact the [facility] emergency department at and asked to speak to the emergency department charge nurse. Dressing changes twice a day follow-up primary medical doctor for recheck next week call to schedule routine appointment return as needed as discussed[]
[2017-10-13] MEDS ORDERED: Bacitracin Oint 1 GM U/D Packet TOP ONE (23:49)
== END 2017-10-14 00:02 | disposition home or self-care (01) ==
LOC: MW.ED 22:39
DX: S61.216A Laceration without foreign body of right little finger without damage to nail, initial encounter (principal); E78.00 Pure hypercholesterolemia, unspecified; E03.9 Hypothyroidism, unspecified; Z88.2 Allergy status to sulfonamides; Z88.5 Allergy status to narcotic agent; Z88.1 Allergy status to other antibiotic agents; Z79.899 Other long term (current) drug therapy; W05.0XXA Fall from non-moving wheelchair, initial encounter
CPT/HCPCS: 99282